=== PATIENT | female | born 1940 | race Caucasian/White ===

== ENCOUNTER 2022-02-17 17:30 | Inpatient (IN) | payer MEDICARE, OTHER, SELFPAY ==
[2022-02-17] VITALS (8 sets, daily range): BP systolic 101–133; BP diastolic 51–90; PULSE 67–77; RESP 18–20; TEMP 36.5–37.1; O2SAT 95–99; BMI 31.5; BMI 29.9
--- NOTE | 2022-02-17 18:08 | PC.NURSE ---
Addendum entered by Hanna Higgins R.N. 02/17/22 18:10: Patient has bedsores to buttocks/coccyx, both heels, and right upper leg area. Dressings which were placed by Home health today were replaced. Most of the pressure sores are black with foul smell. Surrounding tissue does not appear reddened or inflamed. No fever. Patient reports she has been using a wheelchair and a walker to get around for a while now but has declined in the last two weeks with inability to transfer on her own from wheelchair to toilet. She reports difficulty taking care of herself. her has and the only help she has at home is home health visits 2x a week. Son is in town at this time. Sent here by home health today because of pressure sores and decline in ability to care for self. She also reports new swelling in bilateral legs. I spoke with Dr. Raygoza at this time, verbal order given for PRINTED CIRCUIT BOARDS SOLDER LEVELER and PT consults, an EKG, as well as basic bloodwork including cbc, cmp, troponin, and BNP. Original Note: Patient has bedsores to buttocks/coccyx, both heals, and right upper leg area. Dressings which were placed by Home health today were replaced. Most of them are black with foul smell. Surrounding tissure does not appear reddened or inflamed. I spoke with Dr. Raygoza at this time, verbal order given for PRINTED [employer] BOARDS SOLDER LEVELER and PT consults.
--- NOTE | 2022-02-17 18:40 | ED_ITS ---
HPI - Wound/Laceration General Chief Complaint: Wound/Laceration Stated Complaint: Pressure Sore on Buttocks Time Seen by Provider: 02/17/22 18:03 Source: patient, family and EMS Mode of arrival: EMS Limitations: no limitations History of Present Illness HPI narrative: Patient is a 81-year-old female who is brought in by EMS. Her son is at bedside. She is here for evaluation pressure sores on her buttocks and also her right lower extremity and also both of her feet. Patient states that she is had a difficult time ambulating for many years now. She is been using a wheelchair and a walker for many years because of a progressive neurologic issue that is not currently under the care of any neurologist. Does not have a specific diagnosis for this. Approximately 10 days ago she became very weak and was un able to get up out of her chair. She spent at least a day in her chair. She was brought to an outside hospital where she was evaluated and eventually discharged home. During the time she was able to have home health/wound care set up and they have been coming to her house. She is not currently on any antibiotics. Her approximately 7 days ago. She has not been mobile at all in the past 10 days. Has not used her walker. Can not stand on her own. Her son is here locally because of the of the patient's in his father. There was concern by home health of the appearance of the wounds on her buttock and lower extremities. She was sent to the emergency department for evaluation and concern for need for admission/debridement. Related Data Home Medications Medication Instructions Recorded Confirmed aspirin 81 mg chewable tablet 81 mg PO DAILY 02/17/22 02/17/22 levothyroxine 112 mcg tablet 112 mcg PO DAILY 02/17/22 02/17/22 lisinopril 40 mg tablet 40 mg PO DAILY 02/17/22 02/17/22 lovastatin 40 mg tablet 40 mg PO DAILY 02/17/22 02/17/22 metformin 500 mg tablet 500 mg PO DAILY 02/17/22 02/17/22 Allergies Allergy/AdvReac Type Severity Reaction Status Date / Time ibuprofen Allergy Verified 02/17/22 19:03 Review of Systems Review of Systems ROS Unobtainable: All systems reviewed & are unremarkable except as noted in HPI and below Patient History Medical History Diabetes Hypertension Hypothyroid Social History household members: none Smoking Status: Former smoker Smoking Status: Former smoker alcohol intake frequency: 0-2 drinks per day Substance Use Type: does not use Exam Initial Vital Signs Initial Vital Signs: Vital Signs Temperature 97.7 F 02/17/22 17:47 Pulse Rate 77 02/17/22 17:47 Respiratory Rate 18 02/17/22 17:47 Blood Pressure 128/58 L 02/17/22 17:47 Pulse Oximetry 96 02/17/22 17:47 Oxygen Delivery Method 02/17/22 17:47 Const General: No ill appearing HENMT Head: normal to inspection and normocephalic Resp Effort & Inspection: normal respiratory effort Auscultation: clear to auscultation bilaterally Cardio Rate: regular rate Rhythm: regular rhythm GI Inspection: normal to inspection Skin Other: Patient has multiple areas of what appear to be necrotic skin. She is a large area on her upper right buttocks that is black and has decreased sensation to touch. There is an area of ulceration underneath this with drainage of clear fluid. There is no surrounding erythema. She is 2 areas on her lateral right upper thigh and 1 area on her left upper thigh that are also black and necrotic. She has black necrotic areas on both of her heels they extend on the lateral aspect of both of her feet. The right side does have clear drainage fluid. None of these areas are surrounded by erythema. Neuro General: patient alert, patient awake, patient oriented x3 and moves all extremities Extrem General: edema Psych Appearance: grossly normal Course Orders Ordered: ED Orders 02/17/22 18:48 Wound Culture and Gram Stain Stat Wound Culture and Gram Stain Stat 02/17/22 19:32 BNP [NT-proBNP (BNP-Adult 18+)] Stat Complete Blood Count AUTO DIFF Stat Comprehensive Metabolic Panel Stat Troponin & CK Cardiac Panel Stat 02/17/22 21:00 Blood Culture Stat Acetaminophen (Acetaminophen 325 Mg Tablet) 650 mg PO Q6HR PRN PRN Reason: Fever/Mild Pain (1-3) Al Hydrox/Mg Hydrox/Simethicone (Mag Hydrox/Alum/Simeth 30 Ml Udc) 30 ml PO Q6HR PRN PRN Reason: Dyspepsia Atorvastatin Calcium (Atorvastatin 20 Mg Tablet) 10 mg PO DAILY TRUDY Calcium Carbonate (Calcium Carbonate 500 Mg Tab) 1,000 mg PO Q4HR PRN PRN Reason: Dyspepsia Dextrose (Dextrose 50 % In Water 25 Gm/50 Ml Syringe) 25 gm IV PRN PRN; Protocol PRN Reason: Hypoglycemia Docusate Sodium (Docusate 100 Mg Capsule) 100 mg PO BID COUNT INCLUDES THE [facility] Enoxaparin Sodium (Enoxaparin 40 Mg/0.4 Ml Syringe) 40 mg SUBCUT DAILY COUNT INCLUDES THE [facility] Insulin Human Lispro (Insulin Lispro 100 Unit/Ml 3ml Vial) 0 unit SUBCUT ACHS TRUDY; Protocol Levothyroxine Sodium (Levothyroxine 112 Mcg Tablet) 112 mcg PO 0600 COUNT INCLUDES THE [facility] Lisinopril (Lisinopril 20 Mg Tablet) 40 mg PO DAILY COUNT INCLUDES THE [facility] Metformin HCl (Metformin Hcl 500 Mg Tablet) 500 mg PO DAILY COUNT INCLUDES THE [facility] Ondansetron HCl (Ondansetron 4 Mg Odt) 4 mg PO Q8HR PRN PRN Reason: Nausea And Vomiting Pantoprazole Sodium (Pantoprazole Dr 20 Mg Tablet) 20 mg PO 0600 TRUDY Sodium Chloride (Sodium Chloride 0.9% Flush) 10 ml IV PRN PRN PRN Reason: Flush Sodium Chloride (Sodium Chloride 0.9% Flush) 10 ml IV BID COUNT INCLUDES THE [facility] Vital Signs Vital signs: Vital Signs - 8 hr 02/17/22 20:18 02/17/22 20:15 Temperature 98.7 F Pulse Rate 68 76 Respiratory Rate 18 20 Blood Pressure 108/54 L 113/53 L Pulse Oximetry 95 95 Oxygen Delivery Method Room Air Oxygen Flow Rate 0 MDM - Wound/Laceration Lab Data Attestation: I reviewed the patient's lab results. Result diagrams: 02/17/22 19:32 02/17/22 19:32 Labs: Lab Results 02/17/22 02/17/22 02/17/22 Range/Units 19:32 19:32 19:32 WBC 8.8 (4.5-11.0) X10^3/uL RBC 3.10 L (4.0-5.2) X10^6/uL Hgb 9.5 L (12.0-16.0) g/dL Hct 28.6 L (36-46) % MCV 92.1 (80-100) fL MCH 30.7 (26-34) PG MCHC 33.4 (30-36) % RDW 15.6 H (11.6-14.8) % Plt Count 369 (150-400) X10^3/uL Neut % (Auto) 62.6 (50-75) % Lymph % (Auto) 20.4 L (25-40) % [place] % (Auto) 9.1 (3-14) % Eos % (Auto) 7.1 H (2-4) % Baso % (Auto) 0.8 (0-2) % Neut # (Auto) 5500 (5889-7347) /uL Lymph # (Auto) 1800 (8933-0076) /uL [place] # (Auto) 800 (0-900) /uL Eos # (Auto) 600 H (0-450) /uL Baso # (Auto) 100 (0-100) /uL Sodium 137 (137-145) mmol/L Potassium 4.2 (3.4-5.1) mmol/L Chloride 104 (98-107) mmol/L Carbon Dioxide 26 (22-32) mmol/L BUN 31 H (7-17) mg/dL Creatinine 0.83 (0.52-1.04) mg/dL Estimated GFR > 60 (>60) mL/min BUN/Creatinine Ratio 37.3 H (6-22) Glucose 110 (80-110) mg/dL Calcium 8.7 (8.4-10.2) mg/dL Total Bilirubin 0.2 (0.2-1.3) mg/dL AST 22 (14-36) IU/L ALT 15 (<35) IU/L Alkaline Phosphatase 73 (38-126) U/L Total Creatine Kinase 46 (30-135) U/L CK-MB (CK-2) TNP CK-MB (CK-2) Rel Index TNP Troponin I < 0.012 (0.01-0.034) ng/mL NT-Pro-B Natriuret Pep 227 (<450) pg/mL Total Protein 6.7 (6.3-8.2) g/dL Albumin 3.3 L (3.5-5.0) g/dL Globulin 3.4 (1.7-4.1) g/dL Albumin/Globulin Ratio 1.0 (1.0-2.8) ECG Data Attestation: I personally reviewed and interpreted this ECG as follows: Interpretation: Sinus rhythm Ventricular rate is 70 Normal axis Normal QRS Normal QTC No ST T wave changes MDM Narrative Medical decision making narrative: The areas necrosis on her buttocks and lower extremities do not appear to have a superinfection. Her right foot in her buttocks area was cultured because these are the only areas that had clear drainage. We will hold on any antibiotics for now. Patient absolutely needs admitted to the hospital for surgical consultation and most likely debridement of these areas. I did discuss the case with Dr. Flores with general surgery who will see the patient after admission. Discussed the case with Dr. Bernal with Internal Medicine who will admit for further evaluation treatment. Did discuss the need for admission with the patient and her family. They expressed understanding as well. Discharge Plan Departure Patient Disposition: Admitted As Inpatient Clinical Impression: Pressure ulcer Admit Date/Time: 02/17/22 20:27 Admit Provider: Candace Bernal
[2022-02-17 19:51] LABS: Add Manual Diff / Slide Review NO; Basophils Absolute Auto 100 /uL (0-100); Basophils Percent Auto 0.8 % (0-2); Eosinophils Absolute Auto 600 /uL (0-450); Eosinophils Percent Auto 7.1 % (2-4); Hematocrit 28.6 % (36-46); Hemoglobin 9.5 g/dL (12.0-16.0); Lymphocytes Absolute Auto 1800 /uL (1100-4500); Lymphocytes Percent Auto 20.4 % (25-40); Mean Corpuscular HGB Conc 33.4 % (30-36); Mean Corpuscular Hemoglobin 30.7 PG (26-34); Mean Corpuscular Volume 92.1 fL (80-100); Monocytes Absolute Auto 800 /uL (0-900); Monocytes Percent Auto 9.1 % (3-14); Neutrophils Absolute Auto 5500 /uL (1500-7000); Neutrophils Percent Auto 62.6 % (50-75); Platelet Count 369 X10^3/uL (150-400); Red Cell Distribution Width 15.6 % (11.6-14.8); White Blood Cell Count 8.8 X10^3/uL (4.5-11.0)
[2022-02-17 19:53] LABS: Alanine Aminotransferase 15 IU/L (<35); Albumin 3.3 g/dL (3.5-5.0); Alkaline Phosphatase 73 U/L (38-126); Aspartate Aminotransferase 22 IU/L (14-36); BUN Creatinine Ratio 37.3 (6-22); Bilirubin Total 0.2 mg/dL (0.2-1.3); Blood Urea Nitrogen 31 mg/dL (7-17); Calcium 8.7 mg/dL (8.4-10.2); Carbon Dioxide 26 mmol/L (22-32); Chloride 104 mmol/L (98-107); Creatine Kinase 46 U/L (30-135); Estimated Glomerular Filt Rate > 60 mL/min (>60); Globulin 3.4 g/dL (1.7-4.1); Glucose 110 mg/dL (80-110); HEMOLYSIS < 15 (0-50); Potassium 4.2 mmol/L (3.4-5.1); Sodium 137 mmol/L (137-145); Total Protein 6.7 g/dL (6.3-8.2)
[2022-02-17 20:02] LABS: NT-proBNP (BNP-Adult 18+) 227 pg/mL (<450)
[2022-02-17 20:04] LABS: Troponin I < 0.012 ng/mL (0.01-0.034)
--- NOTE | 2022-02-17 20:14 | CM.SWNOTE ---
Initial DCP Assessment Patient is 81 y/o female who presents to ED via EMS per recommendation from elementary instructional coach from [facility] . It is reported that patient has pressure ulcers on her bottom. Patient presented to [facility] on 01/25/22 with similar concerns and was d/c'd to home with [facility] referral. Patient has hx of Hypertension, Type 2 diabetes and Hypothyroidism. Patient's PCP is Corine Mckay PA-C with [facility] in [place], [place]. Patient has Medicare and [facility] insurance. EXTENSION WORK DIRECTOR enters room. Present is room is patient's two sons Zhang and Darion who are visiting from [place]. Patient presents as A/Ox3. It is reported that patient's recently and patient resides at home alone in [place]. Patient endorses she uses a wheelchair, FWW and jovon lift at home. Patient endorses she was using FWW until a few weeks ago and has been in her wheelchair and transferring from wheelchair to bed. Patient's son reports that patient's [facility] referral is for PT, OT, RN, HH aide and EXTENSION WORK DIRECTOR. It is was reported that there was a concern for HH team's ability to manage patient's level of care. Patient endorses concern for her numb right leg. Patient has been needing assistance with ADLs. Patient endorses preference for SNF rehab. Per ED provider Dr. Jung, there is concern that patient will need Incision and Drainage for patients wounds throughout her bottom and legs. ED provider to continue to evaluate patient as patient's labs and blood cultures are still pending. There is an order for PT. Plan: ED provider to further medically assess patient, EXTENSION WORK DIRECTOR to f/u with POC tomorrow, pending PT evaluation. OZZIE Lai Discharge Planning/Care Management CM Discharge Assessment Start: 02/17/22 20:09 Freq: Status: Active Protocol: Document 02/17/22 20:10 LN (Rec: 02/17/22 20:14 LN [id number]) Discharge Planning Assessment Assigned Group Controller OZZIE Moses Advance Directives? No History Provided By Patient,Family Member Has Patient been admitted in last 30 No days? Prior Living Arrangements House Household Members none Comment Patient's recently on hospice Type of transporation used prior to Relies on Others admit Independent with ADL's No Is patient alert and oriented? Yes Needs Assistance With Bathing,Grooming,Meal Prep, Toileting,Home Chores / Shopping Caregiver for Another No Community Services used prior to Physical Therapy,Occupational admission: Therapy,Home Health Aid,Home Health Nurse,Social Work Comment Patient has current referral for [facility], per family it is for: EXTENSION WORK DIRECTOR, RN, OT, PT and EXTENSION WORK DIRECTOR. It is also reported that [facility] is not able to manage patient's level of care DME Already Rented / Owned Wheelchair,FWW / Walker Comment Patient also has jovon lift at home and her jovon transfer sheet is present with her today. Patient/Family Preference Group Home Facility SNF/HH Preference EXTENSION WORK DIRECTOR asks about preference and she and family prefer SNF rehab near by. Has Agency SNF been contacted No
[2022-02-17 21:37] LABS: COVID19 -Nasal RAPID Negative (Negative)
--- NOTE | 2022-02-17 21:41 | PC.NURSE ---
Mepilex dressing applied to all wounds.
--- NOTE | 2022-02-17 23:26 | PM.HP.1 ---
History of Present Illness History of Present Illness Date Patient Seen: 02/17/22 Time Patient Seen: 23:27 Date of Onset of Symptoms: 01/25/22 Chief complaint: Pressure Sore on Buttocks Narrative: This is a 81-year-old female with a history of primary lateral sclerosis who presents to the emergency department for evaluation of wounds and progressive decline in mobility who was discovered to have necrotic ulcers on her bilateral buttocks legs and heels. Due to the extent and significance of the wounds it was felt she needed hospitalization with expected probable surgical debridement and aggressive treatment of these wounds. Wound cultures and blood cultures were done in the emergency room. The case was discussed with General surgery. The patient is followed by Dr. Corine Raygoza at [facility] and [facility]. The patient lives on [address]. She is excellent historian and her son Zhang is here visiting from [place]. She has had a progressive decline over the last several months but for 6 weeks she is essentially been immobile and no longer able to walk with her walker. She is had severe pain over the last 2 weeks because of the wounds and has been continually on them. Apparently she sought care at [facility] Emergency room and for some reason they did not admit her to the hospital but discharge her to home with home health. Home health has been coming into the house twice weekly. Patient was seen at [facility] on January 25. Past medical history: 1. Type 2 diabetes, non insulin-dependent 2. Hyperlipidemia 3. Hypertension 4. Hypothyroidism 5. Former smoker Medications include metformin 500 mg twice daily, lovastatin, levothyroxine, lisinopril Past surgical history unremarkable. Patient has had no surgeries other than surgical repair of leg fractures Family history her mom had diabetes as did her maternal grandmother No other medical problems run in the family. Health related behavior she no longer smokes does not use alcohol Social history she is a . Unfortunately her a week ago. He had dementia and was on hospice. Her only son lives in [place] and is here visiting was here helping care for his father. Patient was in a home by herself on [address]. She is supported nar but no family nearby Review of systems is negative for fever, chills, cough, shortness of breath, chest pain, palpitations Patient has had a catheter since she was in the ER at [facility]. They did have an episode where it was pulled out and she had some bleeding. They were planning to put a bigger bulb been. Patient History Family & Social History Social History: household members none Prior Living Arrangements House Safety & Behavioral: Feels Safe in Current Yes Environment Been Physically Hurt or No Threatened By a Person Tobacco & Substance use: Tobacco type cigarettes Smoking Status Former smoker alcohol intake frequency 0-2 drinks per day Substance Use Type does not use Meds Home Medications and Allergies Home Medications Medication Instructions Recorded Confirmed Type aspirin 81 mg chewable tablet 81 mg PO DAILY 02/17/22 02/17/22 History levothyroxine 112 mcg tablet 112 mcg PO DAILY 02/17/22 02/17/22 History lisinopril 40 mg tablet 40 mg PO DAILY 02/17/22 02/17/22 History lovastatin 40 mg tablet 40 mg PO DAILY 02/17/22 02/17/22 History metformin 500 mg tablet 500 mg PO DAILY 02/17/22 02/17/22 History Allergies Allergy/AdvReac Type Severity Reaction Status Date / Time ibuprofen Allergy Verified 02/17/22 19:03 Exam Vital Signs (past 8 hours): - 02/17/22 17:47 02/17/22 20:18 02/17/22 19:00 Temperature 97.7 F Pulse Rate 77 68 67 Respiratory Rate 18 18 18 Blood Pressure 128/58 L 108/54 L 123/57 L Pulse Oximetry 96 95 99 Oxygen Delivery Method Room Air Room Air Room Air 02/17/22 18:30 02/17/22 18:00 02/17/22 21:00 Temperature Pulse Rate 73 72 68 Respiratory Rate 18 Blood Pressure 121/90 133/63 102/51 L Pulse Oximetry 97 96 95 Oxygen Delivery Method Room Air Room Air 02/17/22 21:30 Temperature Pulse Rate 68 Respiratory Rate 18 Blood Pressure 101/57 L Pulse Oximetry 97 Oxygen Delivery Method Room Air Oxygen Delivery Method Room Air Narrative Exam Narrative: Afebrile vital signs are stable HEENT: Mucous membranes are moist and pink without mucosal lesions. Neck: Supple without adenopathy thyromegaly or bruits. No obvious masses. Chest: Shows clear to auscultation without wheezes rhonchi or crackles. Cor: Regular rate and rhythm with distant S1-S2 Abdomen: Protuberant positive bowel sounds, soft, nontender, nondistended, hepatosplenomegaly Extremities: Trace edema. Pulses intact. Skin: Patient with necrotic decubitus ulcers on the buttocks. Foul-smelling. Pressure wounds on the heels bilaterally as well as the medial thigh. Neurologic exam is remarkable for movement of her left lower leg flexion minimally. She is full movement of her upper extremities. Cranial nerves 2-12 are grossly intact. Patient does have spasticity lower extremities. Objective Labs Result Diagrams: 02/17/22 19:32 02/17/22 19:32 Labs: Laboratory Results - last 24 hr 02/17/22 02/17/22 02/17/22 19:32 19:32 19:32 WBC 8.8 RBC 3.10 L Hgb 9.5 L Hct 28.6 L MCV 92.1 MCH 30.7 MCHC 33.4 RDW 15.6 H Plt Count 369 Neut % (Auto) 62.6 Lymph % (Auto) 20.4 L [place] % (Auto) 9.1 Eos % (Auto) 7.1 H Baso % (Auto) 0.8 Neut # (Auto) 5500 Lymph # (Auto) 1800 [place] # (Auto) 800 Eos # (Auto) 600 H Baso # (Auto) 100 Sodium 137 Potassium 4.2 Chloride 104 Carbon Dioxide 26 BUN 31 H Creatinine 0.83 Estimated GFR > 60 BUN/Creatinine Ratio 37.3 H Glucose 110 Calcium 8.7 Total Bilirubin 0.2 AST 22 ALT 15 Alkaline Phosphatase 73 Total Creatine Kinase 46 CK-MB (CK-2) TNP CK-MB (CK-2) Rel Index TNP Troponin I < 0.012 NT-Pro-B Natriuret Pep 227 Total Protein 6.7 Albumin 3.3 L Globulin 3.4 Albumin/Globulin Ratio 1.0 SARS-CoV-2 (PCR) 02/17/22 21:00 WBC RBC Hgb Hct MCV MCH MCHC RDW Plt Count Neut % (Auto) Lymph % (Auto) [place] % (Auto) Eos % (Auto) Baso % (Auto) Neut # (Auto) Lymph # (Auto) [place] # (Auto) Eos # (Auto) Baso # (Auto) Sodium Potassium Chloride Carbon Dioxide BUN Creatinine Estimated GFR BUN/Creatinine Ratio Glucose Calcium Total Bilirubin AST ALT Alkaline Phosphatase Total Creatine Kinase CK-MB (CK-2) CK-MB (CK-2) Rel Index Troponin I NT-Pro-B Natriuret Pep Total Protein Albumin Globulin Albumin/Globulin Ratio SARS-CoV-2 (PCR) Negative Assessment & Plan Assessment & Plan narrative: 81-year-old female with primary lateral sclerosis with progressive worsening mobility issues and now with necrotic pressure wounds that will likely need debridement Assessment 1. Primary lateral sclerosis Plan: I think that this is progression of the disease which is affecting her immobility. There is no evidence of recent stroke or other neurologic etiology. Plan: We will get her records. We will consult physical therapy. Occupational therapy Assessment 2. Necrotic decubitus ulcers with complicating factor of progressive neurologic disorder that affects immobility. Plan: Patient meets criteria for inpatient admission due to the severity of the decubitus ulcers and the likelihood of needing surgical debridement and aggressive wound care as well as assistance with mobility. We will consult physical therapy, occupational therapy, discharge planning. Patient will likely need skilled care facility. Dr. Flores is consulted regarding the ulcers. Wound cultures are pending as are blood cultures. Will reassess labs in a.m.. Assessment 3. Type 2 diabetes Plan: Will check sugars and continue outpatient metformin Assessment 4. Hypertension Plan: Will continue outpatient antihypertensive Assessment 5. Hyperlipidemia Plan: Will continue outpatient lovastatin Assessment 6. DVT prophylaxis Plan Lovenox Assessment 7. GI prophylaxis Plan omeprazole Code status is DNR 65 minutes spent with patient, discussing with ER physician, nursing, patient and her son and meeting with patient reviewing the chart formulating a plan and documentation. Time Spent With Patient Critical Care time: I spent a total of [] minutes of critical care time on this patient's care today; this time is exclusive of procedural time. Quality VTE Deep Vein Thrombosis/Pulmonary Embolism Present on Admission: No
[2022-02-18] VITALS (20 sets, daily range): BP systolic 72–135; BP diastolic 40–84; PULSE 66–107; RESP 11–22; TEMP 35.6–36.7; O2SAT 94–99; BMI 29.9
[2022-02-18] MEDS: PANTOPRAZOLE DR 20 MG TABLET PO (05:56)
[2022-02-18] MEDS: LEVOTHYROXINE 112 MCG TABLET PO (05:56)
[2022-02-18 06:24] LABS: Add Manual Diff / Slide Review NO; Basophils Absolute Auto 100 /uL (0-100); Basophils Percent Auto 1.1 % (0-2); Eosinophils Absolute Auto 600 /uL (0-450); Eosinophils Percent Auto 9.3 % (2-4); Hematocrit 28.3 % (36-46); Hemoglobin 9.3 g/dL (12.0-16.0); Lymphocytes Absolute Auto 1600 /uL (1100-4500); Lymphocytes Percent Auto 22.9 % (25-40); Mean Corpuscular HGB Conc 32.7 % (30-36); Mean Corpuscular Hemoglobin 30.1 PG (26-34); Monocytes Absolute Auto 900 /uL (0-900); Monocytes Percent Auto 12.3 % (3-14); Neutrophils Absolute Auto 3800 /uL (1500-7000); Neutrophils Percent Auto 54.4 % (50-75); Platelet Count 339 X10^3/uL (150-400); Red Blood Cell Count 3.08 X10^6/uL (4.0-5.2); Red Cell Distribution Width 15.7 % (11.6-14.8)
[2022-02-18 06:38] LABS: Alanine Aminotransferase 13 IU/L (<35); Alkaline Phosphatase 66 U/L (38-126); Aspartate Aminotransferase 19 IU/L (14-36); BUN Creatinine Ratio 31.9 (6-22); Bilirubin Total 0.2 mg/dL (0.2-1.3); Blood Urea Nitrogen 23 mg/dL (7-17); Calcium 8.4 mg/dL (8.4-10.2); Carbon Dioxide 26 mmol/L (22-32); Chloride 104 mmol/L (98-107); Estimated Glomerular Filt Rate > 60 mL/min (>60); Globulin 3.1 g/dL (1.7-4.1); Glucose 97 mg/dL (80-110); HEMOLYSIS < 15 (0-50); Potassium 4.2 mmol/L (3.4-5.1); Sodium 137 mmol/L (137-145); Total Protein 6.1 g/dL (6.3-8.2)
[2022-02-18 06:47] LABS: HEMOLYSIS < 15 (0-50); Iron 49 ug/dL (37-170)
[2022-02-18 06:55] LABS: Transferrin 139 mg/dL (206-381)
[2022-02-18 07:00] LABS: Percent Iron Saturation 24 % (15-50); Total Iron Binding Capacity 201 ug/dL (265-497)
--- NOTE | 2022-02-18 07:05 | PC.ADMIT ---
2383 [facility] Admission Note: The patient,Andra Becker,81 y/o, was given written information regarding hospital policies, unit procedures and contact persons. Patient's smoking status: Former smoker. Vital Signs - 8 hr 02/18/22 00:30 Oxygen Delivery Method Room Air
--- NOTE | 2022-02-18 07:17 | P.PN_ITS ---
Subjective Subjective Date Patient Seen: 02/18/22 Interval history: 81-year-old Female with primary lateral sclerosis, type 2 diabetes, hyperlipidemia hypertension, and hypothyroidism who admitted loss night with progressive necrotic decubitus wounds and worsening mobility issues. Patient reports she had an okay night overall. She got good rest. No nausea/vomiting/abdominal pain/chest pain/shortness of breath. She does report she has been eating less recently. Her son has been preparing foods that she does not care for. She reports her entire intake yesterday consisted of peanut butter toast and a protein shake. She does feel she has lost weight as she has noticed more wrinkles in her arms. Exam Vital Signs (past 8 hours): - 02/18/22 00:30 Oxygen Delivery Method Room Air Oxygen Delivery Method Room Air Oxygen Flow Rate 0 Narrative Exam Narrative: GEN: Alert and oriented x 3, NAD HEENT:NC, Face symmetric CHEST: Respiratory excursions symmetric, CTAB CV: RRR, no M/R/G ABD: Soft, NT/ND, BT present in all 4 quadrants, no organomegaly or masses EXTR: warm, well perfused, no C/C/E SKIN: warm and dry, no rash; large approximately 5 cm malodorous necrotic decubitus ulcer noted on the right buttock with mild surrounding erythema NEURO: Alert and oriented x 3, nonfocal Objective Labs Result Diagrams: 02/18/22 06:10 02/18/22 06:10 Labs: Laboratory Results - last 24 hr 02/17/22 02/17/22 02/17/22 19:32 19:32 19:32 WBC 8.8 RBC 3.10 L Hgb 9.5 L Hct 28.6 L MCV 92.1 MCH 30.7 MCHC 33.4 RDW 15.6 H Plt Count 369 Neut % (Auto) 62.6 Lymph % (Auto) 20.4 L [place] % (Auto) 9.1 Eos % (Auto) 7.1 H Baso % (Auto) 0.8 Neut # (Auto) 5500 Lymph # (Auto) 1800 [place] # (Auto) 800 Eos # (Auto) 600 H Baso # (Auto) 100 Sodium 137 Potassium 4.2 Chloride 104 Carbon Dioxide 26 BUN 31 H Creatinine 0.83 Estimated GFR > 60 BUN/Creatinine Ratio 37.3 H Glucose 110 Calcium 8.7 Iron TIBC % Saturation Transferrin Total Bilirubin 0.2 AST 22 ALT 15 Alkaline Phosphatase 73 Total Creatine Kinase 46 CK-MB (CK-2) TNP CK-MB (CK-2) Rel Index TNP Troponin I < 0.012 NT-Pro-B Natriuret Pep 227 Total Protein 6.7 Albumin 3.3 L Globulin 3.4 Albumin/Globulin Ratio 1.0 SARS-CoV-2 (PCR) 02/17/22 02/18/22 02/18/22 21:00 06:10 06:10 WBC 7.0 RBC 3.08 L Hgb 9.3 L Hct 28.3 L MCV 92.0 MCH 30.1 MCHC 32.7 RDW 15.7 H Plt Count 339 Neut % (Auto) 54.4 Lymph % (Auto) 22.9 L [place] % (Auto) 12.3 Eos % (Auto) 9.3 H Baso % (Auto) 1.1 Neut # (Auto) 3800 Lymph # (Auto) 1600 [place] # (Auto) 900 Eos # (Auto) 600 H Baso # (Auto) 100 Sodium 137 Potassium 4.2 Chloride 104 Carbon Dioxide 26 BUN 23 H Creatinine 0.72 Estimated GFR > 60 BUN/Creatinine Ratio 31.9 H Glucose 97 Calcium 8.4 Iron TIBC % Saturation Transferrin Total Bilirubin 0.2 AST 19 ALT 13 Alkaline Phosphatase 66 Total Creatine Kinase CK-MB (CK-2) CK-MB (CK-2) Rel Index Troponin I NT-Pro-B Natriuret Pep Total Protein 6.1 L Albumin 3.0 L Globulin 3.1 Albumin/Globulin Ratio 1.0 SARS-CoV-2 (PCR) Negative 02/18/22 06:10 WBC RBC Hgb Hct MCV MCH MCHC RDW Plt Count Neut % (Auto) Lymph % (Auto) [place] % (Auto) Eos % (Auto) Baso % (Auto) Neut # (Auto) Lymph # (Auto) [place] # (Auto) Eos # (Auto) Baso # (Auto) Sodium Potassium Chloride Carbon Dioxide BUN Creatinine Estimated GFR BUN/Creatinine Ratio Glucose Calcium Iron 49 TIBC 201 L % Saturation 24 Transferrin 139 L Total Bilirubin AST ALT Alkaline Phosphatase Total Creatine Kinase CK-MB (CK-2) CK-MB (CK-2) Rel Index Troponin I NT-Pro-B Natriuret Pep Total Protein Albumin Globulin Albumin/Globulin Ratio SARS-CoV-2 (PCR) [facility] Medical History Diabetes Hypertension Hypothyroid Social History household members: none Smoking Status: Former smoker Assessment & Plan Assessment & Plan narrative: 1. Primary lateral sclerosis Patient has had progressive difficulties with mobility. She has been wheelchair bound. Recently, her on hospice. Son lives in [place]. She will likely require placement at discharge. Await PT/OT evaluations. 2. Necrotic decubitus ulcers Await surgical consultation for further recommendations and evaluation for possible debridement. I have encouraged her to lay on her side primarily to avoid ongoing pressure injury on the decubitus ulcer. Giving significant malodor to her wound, I suspect she has an anaerobic infection. Will initiate treatment with IV Zosyn. 3. Diabetes mellitus type 2 Remains on metformin. Continue controlled carb diet. 4. Hypertension Continue lisinopril. Blood pressure is normotensive this morning. 5. Hyperlipidemia Continue statin therapy. 6. Normocytic anemia Iron studies were performed and consistent with anemia of chronic inflammatory disease. 7. Azotemia BUN was 31 on admission, it is improved today down to 23. Will continue to monitor. Code status DNR Prophylaxis Chemical prophylaxis deferred pending evaluation for general surgery Disposition Very likely will require placement at discharge as she is unable to care for herself and her next of kin lives out of state Time Spent With Patient Critical Care time: I spent a total of [] minutes of critical care time on this patient's care today; this time is exclusive of procedural time. Quality VTE Deep Vein Thrombosis/Pulmonary Embolism Present on Admission: No
[2022-02-18 07:27] LABS: Vitamin B12 659 pg/mL (239-931)
--- NOTE | 2022-02-18 07:52 | PM.CALLCOV.1 ---
Call Coverage Note Note Date of Patient Contact: 02/18/22 Time of Patient Contact: 07:52 Narrative of Care Provided: Full consult note to follow 81F decubitus ulcers to OR today for debridment and likely wound vac placement.
[2022-02-18 08:31] LABS: Free T4, Direct Thyroxine 1.51 ng/dL (0.78-2.19)
[2022-02-18] MEDS: SODIUM CHLORIDE 0.9% 250 ML 21 ML IV (08:39)
[2022-02-18] MEDS: PIPERACILLIN/TAZO 3.375 GM in SODIUM CHLORIDE 0.9% 100 ML IV ×2 (08:39→15:39)
[2022-02-18] MEDS: SODIUM CHLORIDE 0.9% FLUSH 10 ML IV ×2 (08:40→20:34)
--- NOTE | 2022-02-18 09:31 | PT-IP ANOTE ---
PT lory received. EMR reviewed. Per doctor's note: plan is for I&D and possible wound vac placement on decubitus ulcer. Will f/u after surgery. informed nurse and agreed.
--- NOTE | 2022-02-18 09:38 | OT.IPNOTE ---
HOLD OT lory as pt to have I and D.
--- NOTE | 2022-02-18 11:12 | P.CONS_ITS ---
History of Present Illness Consult details Date Patient Seen: 02/18/22 Chief complaint: Pressure Sore on Buttocks Narrative: 81-year-old woman with primary lateral sclerosis and associated deep pressure ulcers of her back and bilateral feet. 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 Past medical history significant for diabetes and hypothyroidism Meds Home Medications and Allergies Home Medications Medication Instructions Recorded Confirmed Type aspirin 81 mg chewable tablet 81 mg PO DAILY 02/17/22 02/17/22 History levothyroxine 112 mcg tablet 112 mcg PO DAILY 02/17/22 02/17/22 History lisinopril 40 mg tablet 40 mg PO DAILY 02/17/22 02/17/22 History lovastatin 40 mg tablet 40 mg PO DAILY 02/17/22 02/17/22 History metformin 500 mg tablet 500 mg PO DAILY 02/17/22 02/17/22 History Allergies Allergy/AdvReac Type Severity Reaction Status Date / Time ibuprofen Allergy Verified 02/17/22 19:03 Exam Vital Signs (past 8 hours): - 02/18/22 07:00 Temperature 97.1 F L Pulse Rate 76 Respiratory Rate 14 Blood Pressure 105/55 L Pulse Oximetry 94 Oxygen Flow Rate 0 Oxygen Delivery Method Room Air Oxygen Flow Rate 0 Narrative Exam Narrative: General elderly woman alert oriented no distress Back unstageable decubitus ulcer of the right lower back. Extremities pitting edema unstageable pressure ulcers to the heels and lateral aspects of both feet. Objective Labs Result Diagrams: 02/18/22 06:10 02/18/22 06:10 Labs: Laboratory Results - last 24 hr 02/17/22 02/17/22 02/17/22 19:32 19:32 19:32 WBC 8.8 RBC 3.10 L Hgb 9.5 L Hct 28.6 L MCV 92.1 MCH 30.7 MCHC 33.4 RDW 15.6 H Plt Count 369 Neut % (Auto) 62.6 Lymph % (Auto) 20.4 L [place] % (Auto) 9.1 Eos % (Auto) 7.1 H Baso % (Auto) 0.8 Neut # (Auto) 5500 Lymph # (Auto) 1800 [place] # (Auto) 800 Eos # (Auto) 600 H Baso # (Auto) 100 Sodium 137 Potassium 4.2 Chloride 104 Carbon Dioxide 26 BUN 31 H Creatinine 0.83 Estimated GFR > 60 BUN/Creatinine Ratio 37.3 H Glucose 110 Calcium 8.7 Iron TIBC % Saturation Transferrin Total Bilirubin 0.2 AST 22 ALT 15 Alkaline Phosphatase 73 Total Creatine Kinase 46 CK-MB (CK-2) TNP CK-MB (CK-2) Rel Index TNP Troponin I < 0.012 NT-Pro-B Natriuret Pep 227 Total Protein 6.7 Albumin 3.3 L Globulin 3.4 Albumin/Globulin Ratio 1.0 Vitamin B12 TSH Free T4 SARS-CoV-2 (PCR) 02/17/22 02/18/22 02/18/22 21:00 06:10 06:10 WBC 7.0 RBC 3.08 L Hgb 9.3 L Hct 28.3 L MCV 92.0 MCH 30.1 MCHC 32.7 RDW 15.7 H Plt Count 339 Neut % (Auto) 54.4 Lymph % (Auto) 22.9 L [place] % (Auto) 12.3 Eos % (Auto) 9.3 H Baso % (Auto) 1.1 Neut # (Auto) 3800 Lymph # (Auto) 1600 [place] # (Auto) 900 Eos # (Auto) 600 H Baso # (Auto) 100 Sodium 137 Potassium 4.2 Chloride 104 Carbon Dioxide 26 BUN 23 H Creatinine 0.72 Estimated GFR > 60 BUN/Creatinine Ratio 31.9 H Glucose 97 Calcium 8.4 Iron TIBC % Saturation Transferrin Total Bilirubin 0.2 AST 19 ALT 13 Alkaline Phosphatase 66 Total Creatine Kinase CK-MB (CK-2) CK-MB (CK-2) Rel Index Troponin I NT-Pro-B Natriuret Pep Total Protein 6.1 L Albumin 3.0 L Globulin 3.1 Albumin/Globulin Ratio 1.0 Vitamin B12 TSH Free T4 SARS-CoV-2 (PCR) Negative 02/18/22 02/18/22 06:10 06:10 WBC RBC Hgb Hct MCV MCH MCHC RDW Plt Count Neut % (Auto) Lymph % (Auto) [place] % (Auto) Eos % (Auto) Baso % (Auto) Neut # (Auto) Lymph # (Auto) [place] # (Auto) Eos # (Auto) Baso # (Auto) Sodium Potassium Chloride Carbon Dioxide BUN Creatinine Estimated GFR BUN/Creatinine Ratio Glucose Calcium Iron 49 TIBC 201 L % Saturation 24 Transferrin 139 L Total Bilirubin AST ALT Alkaline Phosphatase Total Creatine Kinase CK-MB (CK-2) CK-MB (CK-2) Rel Index Troponin I NT-Pro-B Natriuret Pep Total Protein Albumin Globulin Albumin/Globulin Ratio Vitamin B12 659 TSH 14.00 H Free T4 1.51 SARS-CoV-2 (PCR) [facility] Medical History Diabetes Hypertension Hypothyroid Social History household members: none Tobacco & Substance Use Smoking Status: Former smoker Assessment & Plan Assessment and plan (1) Pressure ulcer: Status: Acute Assessment & Plan narrative: 81-year-old woman wheelchair-bound secondary to primary lateral sclerosis who has developed severe pressure ulcers of the sacrum and bilateral feet. She requires operative debridement of the decubitus ulcers. Intent to place wound VAC to the sacral ulcer he and wet to dry dressings to the feet. Overview of the operation was discussed with the patient. Operative risks including bleeding, infection, failure to heal, anesthetic complication and were discussed. Her questions have been answered and she is in agreement with this plan. Time Spent With Patient Critical Care time: I spent a total of [] minutes of critical care time on this patient's care today; this time is exclusive of procedural time.
--- NOTE | 2022-02-18 12:03 | PC.NURSE ---
Day Shift Pt left floor via bed to OR for I&D procedure at 1205. Pt denied any pain.
[2022-02-18] MEDS: LACTATED RINGERS 1,000 ML 42 ML IV ×3 (12:30→14:53)
--- NOTE | 2022-02-18 13:19 | SUR.OPER ---
Prone on padded OR bed, head in foam head support, gel chest rolls, gel pad under knees, pillow under lower legs, toes free of pressure, arms secured on padded arm boards at <90 degrees abduction. Safety belt at thigh.
--- NOTE | 2022-02-18 13:19 | SUR.OPER ---
Addendum entered by Shai Van R.N. 02/18/22 13:53: ulcer right lateral knee Original Note: necrotic decubitus ulcers on posterior right gluteusregion, right mid thigh, bilateral bottom of heels/feet, and skin abrasion posterior left mid thigh
[2022-02-18] MEDS: BUPIVACAINE 0.25% (PF) VIAL 30 ML INJ (13:33)
--- NOTE | 2022-02-18 13:56 | PC.NURSE ---
Day shift: Pt remains off of AC unit at this time (1400). Family members in Pt's room at this time also.
--- NOTE | 2022-02-18 14:27 | PM.OP.1 ---
Operative Date/Time/Diagnoses Date of procedure: 02/18/22 Time of procedure: 14:27 Pre-op diagnosis: Decubitus ulcer Post-op diagnosis: same Procedure & Clinicians Procedure: Excisional debridement of decubitus ulcers Same procedure as scheduled: Yes Indications: 81-year-old woman wheelchair-bound with multiple decubitus ulcers in involving her buttock bilateral feet and right lower extremity Surgeon: Jorge Luis Asher Yes if Unassisted: Yes Anesthesia Type: General Operative Notes Specimen(s): other (Decubitus ulcer sent for culture ) Estimated Blood Loss (mL): 50 Procedure in detail: Patient was brought to the operating room placed supine on the table. She received Zosyn prior to skin incision. She was intubated with an endotracheal tube. She was then placed into the prone position for the padded. She was prepped and draped in sterile fashion. Time-out was performed. An elliptical incision around the decubitus ulcer on the right buttock was made. The incision was extended to the depth of the muscle before viable tissue was reached. The size of this wound measured approximately 20 x 15 cm and 1 cm in depth the level was to the muscle. There were 2 wounds on the right lower extremity on the lateral surface superior to the knee. The dimensions of these wounds measured 8 x 4 cm by 1/2 cm in depth to the subcutaneous tissue the 2nd measured 9 x 5 cm 1 cm in depth to the level of the subcutaneous tissue. There were decubitus ulcers that were debrided on the bottom of both feet. This involved the heel of the left foot which was excised the wound measured 6 x 6 cm x 1 cm in depth. The right foot had a elongated portion of necrotic tissue extending along the lateral aspect of the foot which measured 20 cm x 4 cm x 1 cm depth Hemostasis was achieved. Wet-to-dry dressings with 4x4s Kerlix applied to the wounds. Complications: none Post-operative Condition: stable Disposition: Acute Care
--- NOTE | 2022-02-18 14:36 | SUR.PHASEI ---
BP range from 72/40 with MAP of 50 to 76/43 with MAP of 51; GCS 15; NSR; 500 ml LR bolus given.
--- NOTE | 2022-02-18 14:40 | SUR.PHASEI ---
BP 83/48, MAP 58 after 500 ml LR bolus; tolerating well; lungs remain clear on auscultation; placed pillows under each lower extremity for comfort and to prevent further skin breakdown to bilateral heels/soles of feet.
--- NOTE | 2022-02-18 14:57 | CM.DPC ---
Addendum entered by Aurelia Byrne 02/18/22 15:12: DCP Note continued ELEVATING GRADER OPERATOR is informed that patient is inpatient status as of 02/17/22. SNF rehab search: ELEVATING GRADER OPERATOR calls Blanca at [facility], it is reported that she can review patient but will probably not have bed openings until Wednesday 02/21 or Thursday 02/22. Blanca endorses she will review patient's EMR and return call. ELEVATING GRADER OPERATOR calls [facility] and leaves VM requesting return call. ELEVATING GRADER OPERATOR faxes clinicals for review. ELEVATING GRADER OPERATOR calls [facility], ELEVATING GRADER OPERATOR is unable to leave VM due to full mailbox. ELEVATING GRADER OPERATOR faxes clinicals for review. ELEVATING GRADER OPERATOR calls [facility] and leaves VM requesting return call. ELEVATING GRADER OPERATOR faxes clinicals for review. Plan: Continue SNF rehab search, pending PT eval. OZZIE Lai Original Note: DCP Note Continued DCP ELEVATING GRADER OPERATOR Damaris asks ELEVATING GRADER OPERATOR to f/u with family regarding POC and private pay. Patient had I & D procedure today performed by Dr. Flores. Inpt status is pending dependent on Operative notes. ELEVATING GRADER OPERATOR enters room to meet with patient's sons Zhang and Darion. RN reports that patient is still in PACU after procedure. ELEVATING GRADER OPERATOR asks about private pay option if Medicare does not cover SNF rehab, it is reported that they may have funds to cover SNF rehab stay but endorse preference for Medicare coverage. ELEVATING GRADER OPERATOR discusses difference between Inpatient status and Observation which determines insurance coverage for SNF rehab. ELEVATING GRADER OPERATOR asks about half-way care plan. It is reported that their half-way care plan for patient is to get her into [facility]. ELEVATING GRADER OPERATOR calls [facility] and it is reported that there is still a current referral in place for patient. Patient's son endorses that they received call from [facility] RN Charlotte, who indicated that as well. Son reports that Charlotte was the RN who recommended ED visit and recommends SNF rehab for patient. Plan: POC pending on insurance status and PT evaluation. Proceed with SNF rehab search private pay vs. Medicare coverage or covid waiver. Medical clearance for patient is not determined at this time. F/u with [facility] regarding POC. OZZIE Lai
--- NOTE | 2022-02-18 15:27 | SUR.PHASEI ---
Reported to receiving Nurse Mirian NOEL that patient's urine was malodorous and had sediment present in tubing. Advised that a urine specimen be sent for analysis to r/o infection.
--- NOTE | 2022-02-18 15:50 | PC.NURSE ---
DayShift Pt returned to Acute Care floor at 1540 via bed. Pt denies any pain or nausea, orientated to call light and room phone, Pt instructed to insparameter and did 5 consecutive inhales. Pt is repositioned with pillows for comfort. BP 125/65 81 Spo2 94%, Pt O2 dropped with movement placed NC @ 2 liters and Spo2 returned to 97%.
[2022-02-18 18:22] LABS: Appearance Urine UA CLEAR; Bilirubin Urine UA NEGATIVE (NEGATIVE); Color Urine UA YELLOW; Glucose Urine UA NEGATIVE (Negative); Ketones Urine UA NEGATIVE (NEGATIVE); Leukocyte Esterase Urine UA TRACE (NEGATIVE); Nitrite Urine UA NEGATIVE (Negative); Occult Blood Urine UA NEGATIVE (Negative); Protein Urine UA NEGATIVE (Negative); Specific Gravity Urine UA <=1.005 (1.000-1.035); Urobilinogen Urine UA 0.2 E.U./dL (0.2)
[2022-02-18 18:24] LABS: pH Urine UA 6.5 (4.5-8.0)
[2022-02-18 18:31] LABS: Bacteria Urine Occasional (0-1); Culture Indicated Urine Specimen Cultured; RBC Urine None Seen (0-5/HPF); WBC Urine 5-10/HPF (0-5/HPF)
[2022-02-18] MEDS: DOCUSATE 100 MG CAPSULE PO (20:34)
--- NOTE | 2022-02-18 22:04 | PC.NURSE ---
Addendum entered by Delisa David R.N. 02/19/22 02:18: Patient refusing to lie on right side saying with her illness she is not able to tolerate it. Judit bed tilted to relieve pressure but patient became angry and hollering stating I'm the patient, I have rights. Discussed with her the pressure ulcers and purpose of coming to hospital and she states I came for help and I got it, so now leave me alone. Bed placed flat per her request. Original Note: Patient is alert and oriented. Breath sounds CTA with RA sat of 97%. HRR but has low BP of 96/52 (MAP 73) and has been trending low since surgery. BT present and abdomen soft but denies passing flatus. Indwelling catheter is patent; urine is clear, pale, yellow. Dressings to bilateral feet CDI; CMS intact with good capillary refill and able to wiggle toes. Dressing to lateral right leg intact with serosanguinous drainage. Dressing to coccyx is intact but also has serosanguinous drainage. Had I&D earlier today and will be treating with wet-to-dry dressings. Denies pain. Is able to assist with repositioning but needing to be turned q2h; using pillows to float heels and has heel protectors on as well. Weak in left LE and is unable to move right LE. Fall risk score is high and bed alarm is activated. Continues on contact isolation while MRSA is being ruled out via cultures obtained yesterday and today.
[2022-02-19] VITALS: BP 97/41; PULSE 73; RESP 18; TEMP 36.6; O2SAT 97
[2022-02-19] MEDS: PIPERACILLIN/TAZO 3.375 GM in SODIUM CHLORIDE 0.9% 100 ML IV ×4 (00:08→23:38)
[2022-02-19] MEDS: SODIUM CHLORIDE 0.9% FLUSH 10 ML IV ×3 (00:09→23:36)
[2022-02-19 04:57] VITALS: BP 100/44; PULSE 72; RESP 16; TEMP 36.9; O2SAT 94
--- NOTE | 2022-02-19 05:16 | P.PN_ITS ---
Subjective Subjective Date Patient Seen: 02/19/22 Interval history: 81-year-old Female with primary lateral sclerosis, type 2 diabetes, hyperlipidemia hypertension, and hypothyroidism who admitted loss night with progressive necrotic decubitus wounds and worsening mobility issues. Patient reports she is feeling reasonably well today. She states last night the cage shift manager nurse tried to get her to roll on her right side but she declined as she had debridements performed on her right calf as well as her feet and buttocks. She states the nurse was upset with her but ultimately left the room. She reports today she is doing fairly well though expresses concern over the depth of her wounds. Her son is present at bedside. He reports he will be going back to [place] soon. Patient did work with physical therapy but was unable to do much other than get up to bedside. Exam Vital Signs (past 8 hours): - 02/19/22 00:00 02/19/22 04:57 Temperature 97.9 F 98.4 F Pulse Rate 73 72 Respiratory Rate 18 16 Blood Pressure 97/41 L 100/44 L Pulse Oximetry 97 94 Oxygen Flow Rate 0 0 Oxygen Delivery Method Room Air Oxygen Flow Rate 0 Narrative Exam Narrative: GEN: Alert and oriented x 3, NAD HEENT:NC, Face symmetric CHEST: Respiratory excursions symmetric, CTAB CV: RRR, no M/R/G ABD: Soft, NT/ND, BT present in all 4 quadrants, no organomegaly or masses EXTR: warm, well perfused, no C/C/E SKIN: warm and dry, no rash; right buttock ulcer has been debrided and packed with wet to dry dressings, entirety of the eschar was removed; bilateral heels have also been debrided, as was a wound on her right lateral calf; yesterday the buttock wound was notably quite malodorous, that odor is gone today NEURO: Alert and oriented x 3, nonfocal Objective Labs Result Diagrams: 02/19/22 06:30 02/19/22 06:30 Labs: Laboratory Results - last 24 hr 02/18/22 02/18/22 02/18/22 06:10 06:10 06:10 WBC 7.0 RBC 3.08 L Hgb 9.3 L Hct 28.3 L MCV 92.0 MCH 30.1 MCHC 32.7 RDW 15.7 H Plt Count 339 Neut % (Auto) 54.4 Lymph % (Auto) 22.9 L [place] % (Auto) 12.3 Eos % (Auto) 9.3 H Baso % (Auto) 1.1 Neut # (Auto) 3800 Lymph # (Auto) 1600 [place] # (Auto) 900 Eos # (Auto) 600 H Baso # (Auto) 100 Sodium 137 Potassium 4.2 Chloride 104 Carbon Dioxide 26 BUN 23 H Creatinine 0.72 Estimated GFR > 60 BUN/Creatinine Ratio 31.9 H Glucose 97 Calcium 8.4 Iron 49 TIBC 201 L % Saturation 24 Transferrin 139 L Total Bilirubin 0.2 AST 19 ALT 13 Alkaline Phosphatase 66 Total Protein 6.1 L Albumin 3.0 L Globulin 3.1 Albumin/Globulin Ratio 1.0 Vitamin B12 TSH 14.00 H Free T4 1.51 Urine Color Urine Appearance Urine pH Ur Specific [place] Urine Protein Urine Glucose (UA) Urine Ketones Urine Occult Blood Urine Nitrate Urine Bilirubin Urine Urobilinogen Ur Leukocyte Esterase Urine RBC Urine WBC Urine Bacteria Ur Culture Indicated? 02/18/22 02/18/22 06:10 18:05 WBC RBC Hgb Hct MCV MCH MCHC RDW Plt Count Neut % (Auto) Lymph % (Auto) [place] % (Auto) Eos % (Auto) Baso % (Auto) Neut # (Auto) Lymph # (Auto) [place] # (Auto) Eos # (Auto) Baso # (Auto) Sodium Potassium Chloride Carbon Dioxide BUN Creatinine Estimated GFR BUN/Creatinine Ratio Glucose Calcium Iron TIBC % Saturation Transferrin Total Bilirubin AST ALT Alkaline Phosphatase Total Protein Albumin Globulin Albumin/Globulin Ratio Vitamin B12 659 TSH Free T4 Urine Color Yellow Urine Appearance Clear Urine pH 6.5 Ur Specific [place] <=1.005 Urine Protein Negative Urine Glucose (UA) Negative Urine Ketones Negative Urine Occult Blood Negative Urine Nitrate Negative Urine Bilirubin Negative Urine Urobilinogen 0.2 Ur Leukocyte Esterase Trace H Urine RBC None seen Urine WBC 5-10/hpf H Urine Bacteria Occasional (0-1) Ur Culture Indicated? Specimen cultured [facility] Medical History Diabetes Hypertension Hypothyroid Social History household members: family and none Smoking Status: Former smoker Assessment & Plan Assessment & Plan narrative: 1. Primary lateral sclerosis Patient has had progressive difficulties with mobility.? She has been wheelchair bound.? Recently, her on hospice.? Son lives in [place].? She will likely require placement at discharge.? PT evaluation done today with recommendation for rehab. OT evaluation pending. 2. Necrotic decubitus ulcers, POD #1 from surgical debridement Pt was taken to the OR yesterday by gen surgery and debridement of RLE/feet/buttock decubitus ulcers was accomplished. Continue local wound care and Zosyn (initiated yesterday). Anticipate discontinuation of Zosyn tomorrow if her wounds continue to show lack of infection. Could consider continuing an oral antibiotic at that time. 3. Diabetes mellitus type 2 Remains on metformin.? Continue controlled carb diet. 4. Hypertension Continue lisinopril.? Blood pressure mildly hypotensive. Will add holding parameters. 5. Hyperlipidemia Continue statin therapy.? 6. Normocytic anemia Iron studies were performed and consistent with anemia of chronic inflammatory disease. Hemoglobin is down from 9 0.3-8.0 today. Likely she has had some acute blood loss secondary to the surgical debridements performed yesterday in the setting of her chronic normocytic anemia of inflammatory disease 7. Azotemia BUN was 31 on admission, it was improved yesterday down to 23.? Today it has normalized. Code status DNR Prophylaxis Chemical prophylaxis deferred pending evaluation for general surgery Disposition Very likely will require placement at discharge as she is unable to care for herself and her next of kin lives out of state Time Spent With Patient Critical Care time: I spent a total of [] minutes of critical care time on this patient's care today; this time is exclusive of procedural time. Quality VTE Deep Vein Thrombosis/Pulmonary Embolism Present on Admission: No
[2022-02-19] MEDS: PANTOPRAZOLE DR 20 MG TABLET PO (06:13)
[2022-02-19] MEDS: LEVOTHYROXINE 112 MCG TABLET PO (06:13)
[2022-02-19 07:00] VITALS: BP 108/51; PULSE 79; RESP 18; TEMP 36.4; O2SAT 95
[2022-02-19] MEDS: ENOXAPARIN 40 MG/0.4 ML SYRINGE SUBCUT (07:40)
[2022-02-19] MEDS: METFORMIN HCL 500 MG TABLET PO (07:42)
[2022-02-19] MEDS: DOCUSATE 100 MG CAPSULE PO ×2 (07:42→23:36)
[2022-02-19] MEDS: ATORVASTATIN 20 MG TABLET 10 MG PO (07:42)
[2022-02-19 08:03] LABS: Add Manual Diff / Slide Review NO; Basophils Absolute Auto 100 /uL (0-100); Basophils Percent Auto 0.9 % (0-2); Eosinophils Absolute Auto 300 /uL (0-450); Eosinophils Percent Auto 4.8 % (2-4); Hematocrit 23.5 % (36-46); Lymphocytes Absolute Auto 1000 /uL (1100-4500); Lymphocytes Percent Auto 14.5 % (25-40); Mean Corpuscular HGB Conc 33.8 % (30-36); Mean Corpuscular Hemoglobin 30.9 PG (26-34); Mean Corpuscular Volume 91.4 fL (80-100); Monocytes Absolute Auto 600 /uL (0-900); Monocytes Percent Auto 9.2 % (3-14); Neutrophils Absolute Auto 4900 /uL (1500-7000); Neutrophils Percent Auto 70.6 % (50-75); Platelet Count 302 X10^3/uL (150-400); Red Blood Cell Count 2.58 X10^6/uL (4.0-5.2); Red Cell Distribution Width 16.3 % (11.6-14.8)
[2022-02-19 08:25] LABS: BUN Creatinine Ratio 18.2 (6-22); Blood Urea Nitrogen 14 mg/dL (7-17); Calcium 8.1 mg/dL (8.4-10.2); Carbon Dioxide 29 mmol/L (22-32); Chloride 104 mmol/L (98-107); Estimated Glomerular Filt Rate > 60 mL/min (>60); Glucose 107 mg/dL (80-110); HEMOLYSIS < 15 (0-50); Potassium 4.3 mmol/L (3.4-5.1); Sodium 136 mmol/L (137-145)
--- NOTE | 2022-02-19 11:25 | PT.IIE ---
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 (02/17/22) Surgery Performed Operation Date: 02/18/22 12:30 Actual Procedures p Incision and Drainage Wound/General decubitus ulcers posterior right gluteus, right posterior mid thigh, bilateral foot bottom(Right) - Jorge Luis Flores MD Medical History (Last Reviewed 02/18/22 @ 11:15 by Jorge Luis Flores MD) Diabetes Hypertension Hypothyroid Physical Therapy Inpatient Evaluation/Re-Eval M1 PT/OT-IP Prior Functional Status Start: 02/19/22 08:36 Freq: NEEDED Status: Active Protocol: Document 02/19/22 11:25 AW (Rec: 02/19/22 12:10 AW [id number]) Medical Review Prior Functional Status Medical History Reviewed Yes Communication WNL. Pt is an effective verbal communicator. Mobility and Gait Andra is able to move herself on her adjustable bed with heavy use of bedrail (on the left side). She mobilizes in a manual wheelchair which she propels with her UE's. Approx one month ago, she was able to stand pivot transfer to her wheelchair using 4WW. A few months ago, she was able to walk short household distances with 4WW. More recently, she has been using a jovon lift to transfer to bed and wheelchair. Activities of Daily Living and IADL's Pt is able to change her shirt and nightgown. She needs assist with toileting. She takes sponge baths and does not use the shower. Prior Functional Level (Other details) Pt is active with [facility] [employer]. She gets Meals on Wheels delivered. Social History Household Members family,none Living Arrangements House Number of Floors (Floors) One Floor Number of Stairs To Enter/Railing? Level entrance at back of the house, can access with wheelchair. Home Equipment Four Wheel Walker,Manual Wheelchair,Power Wheelchair/ Scooter,Mechanical Lift,Bed Rails Additional Social History Comment Pt has an adjustable bed with rails. Her spouse within the past month. Their son who lives in [place] has been staying with her since before her spouse dies. He may be able to stay but not sure how long. He has been assisting pt with jovon transfers. M2 PT-IP Current Condition Start: 02/19/22 08:36 Freq: NEEDED Status: Active Protocol: Document 02/19/22 11:25 AW (Rec: 02/19/22 12:10 AW [id number]) Physical Therapy Current Condition Current Condition Evaluation Date 02/19/22 Treatment Diagnosis stage 4 sacral PI; BLE wounds; primary lateral sclerosis; impaired mobility Onset Date 02/04/22 M3 PT-IP Subjective Start: 02/19/22 08:36 Freq: NEEDED Status: Active Protocol: Document 02/19/22 11:25 AW (Rec: 02/19/22 12:10 AW [id number]) Subjective Physical Therapy Visit Type Type Initial Evaluation Visit Start Time 10:20 Visit Stop Time 11:25 Total Visit Minutes 52 Notes Split visits [id number] and [id number]. Spoke with hospitalist to clarify any weightbearing restrictions. Doctor confirmed no restrictions. Ok with activity order up to chair. Physical Therapy Visit Comments Patient Comments Pt is willing to participate with PT. Patient Goals Be able to transfer with walker Therapy Pain Assessment Pain When Pain Assessed During Mobility Pain Present Pain Present Denied Pain M4 PT-IP Mobility and Gait Start: 02/19/22 08:36 Freq: NEEDED Status: Active Protocol: Document 02/19/22 11:25 AW (Rec: 02/19/22 12:10 AW [id number]) PT-Bed Mobility Assessment Rolling Type of Rolling Roll to Right,Roll to Left Level of Assist Moderate Assistance,Maximal Assistance,2 Person Assistance Supine to Sit Supine to Sit Maximum Assistance,Total Assistance,1 Person Assistance ,Head of Bed Elevated,Bedrails Sit to Supine Sit to Supine Total Assistance,2 Person Assistance Scooting Scooting to Edge of Bed Maximum Assistance Scooting Up and Down in Bed Dependent PT-Transfer Assessment Sit to and From Stand Sit to and from Stand Maximum Assistance,Total Assistance,2 Person Assistance ,Use of Upper Extremities Equipment Transfer Assistive Device Gait Belt,Front Wheeled Walker Orthotic/Prosthetic Devices or Brace: No Transfers Transfer Technique sit<>stand Comments Mobility Comments Andra was lying in bed as PT arrived. She agreed to sit up EOB. She was unable to move her RLE toward right EOB and needed total assist. She used BUE to move her LLE toward EOB with PT assist. Max to total A to scoot toward EOB with extra care due to sacral PI. With feet flat on the ground, she attempted to stand but was unable to extend her knees even with max/total A x 2 and FWW. PT and RN agreed not to use jovon out of concern for shear forces across sacrum. Pt sat and needed total assist x 2 for return to supine. Rolling side to side for pad placement required max A x 2 and pt was dependent for scooting up on the bed. Pt was left with RN attending. Gait Assessment Comments Gait Comments Unable at this time. Stair Climbing Assessment Comments Stair Climbing Comments No stairs at home. PT-Balance Assessment Sitting Balance and Reactions Static Sitting Balance Ability Good Dynamic Sitting Balance Ability Fair Standing Balance and Reactions Static Standing Balance Ability Poor Dynamic Standing Balance Ability Poor Device Used FWW Comments Other Balance Tests/Deviations/Treatment Unable to extend knees and : hips for standing. M5 PT-IP Objective Assessments Start: 02/19/22 08:36 Freq: NEEDED Status: Active Protocol: Document 02/19/22 11:25 AW (Rec: 02/19/22 12:10 AW [id number]) Orientation Orientation/Cognition Level of Alertness Alert Orientation Name,Day of Week,Place, Situation Language Function Ability No Deficits Noted Safety Awareness Understands Safety Issues Memory Description No Deficits Noted Gross Range of Motion Upper Extremity ROM Assessment Right Impaired Impairments RUE lacks elevation. Pt compensates with shoulder shrug but is unable to get her arm behind her head/body. Lower Extremity ROM Assessment Bilaterally Impaired Impairments Lacking dorsiflexion bilaterally with right more severely affected. Strength Lower Extremity Strength Assessment Bilaterally Impaired Hip L 3-/5; R 2-/5 Knee L 3+/5; R 2-/5 Ankle L 3+/5; R 2-/5 Sensation Assessment Sensation Gross Sensation Right LE Impaired Light Touch Impaired Proprioception (Position) Impaired Comments Sensation Comments Dull light touch sensation RLE Muscle Tone Muscle Tone Location Right Lower Extremity Type of Tone Hypotonicity Severity of Tone Severe M6 PT-IP Treatment Start: 02/19/22 08:36 Freq: NEEDED Status: Active Protocol: Document 02/19/22 11:25 AW (Rec: 02/19/22 12:10 AW [id number]) Physical Therapy Treatment Education Education Provided Safety M7 PT-IP Assessment and Plan Start: 02/19/22 08:36 Freq: NEEDED Status: Active Protocol: Document 02/19/22 11:25 AW (Rec: 02/19/22 12:10 AW [id number]) PT Summary Assessment and Plan Potential Rehabilitation Potential Fair Status of Condition at Evaluation Evolving Summary Impairments Pain,ROM,Strength,Balance, Sensation,Tone,Bed Mobility, Transfers,Gait,Activity Tolerance Assessment Summary Andra is a 81 yo woman with primary lateral sclerosis seen for PT evaluation on POD1 following I&D for multiple stage 4 pressure injuries - sacral, right lateral thigh, bilateral feet/heels. PLOF: Pt was able to transfer and ambulate household distances with 4WW and to propel herself in a manual wheelchair. In the past one month, her mobility has declined and she has become dependent on jovon lift to transfer. CLOF: Pt requires max/total assist x 1- 2 for bed mobility and is unable to stand with max assist x 2. She will require SNF rehab to improve her strength and mobility independence. She may ultimately need long-term placement as she lives alone. Goals Bed Mobility Goal Minimal Assistance Transfer Goal Moderate Assistance,Front Wheeled Walker Gait Goal Moderate Assistance,Front Wheel Walker Gait Distance 10 Days to Meet Goals 10 Frequency of Treatment Frequency Of Treatment Once a Day Treatment Plan Physical Therapy Treatment Plan Bed Mobility Training,Transfer Training,Gait Training, Therapeutic Exercise,Balance Retraining,Post Op Education, Discharge Planning,Hot or Cold Pack,Neuromuscular Re-ed Other Recommendations and Next Treatment bed mobility; ther ex for LE Focus strength; attempt to stand Precautions Other Precautions sacral and LE stage IV pressure injuries - avoid excessive shear Recommendations To Nursing Amount of Assist Needed Mechanical Lift Discharge Recommendations PT Discharge Recommendations SNF Rehab Transportation Needs at Discharge Wheelchair/Cabulance,Stretcher /Ambulance
[2022-02-19 11:47] VITALS: BP 101/53; PULSE 82; RESP 18; TEMP 36.5; O2SAT 95
--- NOTE | 2022-02-19 11:57 | PM.CALLCOV.1 ---
Call Coverage Note Note Date of Patient Contact: 02/19/22 Time of Patient Contact: 11:58 Narrative of Care Provided: extensive decubitus ulcers POD 1 sp debridement. Wet to dry dressing twice daily. Call with questions.
--- NOTE | 2022-02-19 14:32 | PC.NURSE ---
Addendum entered by Mirian Winston R.N. 02/19/22 14:49: Pt tolerated all dressing changes well. Pt denied any pain. Original Note: Day Shift Changed all wet /dry dressing, using sterile 4x4 gauze, sterile water, and kerlex gauze,with coban wrap. 1 large dressing on the coccyx, with 8 qty 4x4 sterile gauze with sterile water, covered with 4 qty 4x4 dry, then used 4 strips of MEDFIX Dressing Retention Tape to adhere dressings. Changed both heals dressings used sterile 4x4 gauze, sterile water with dry 4x4 gauze wrapped in Kerlex Gauze then loosely wrapped in coban to secure dressings. 2 lateral dressings changed on the Right thigh / knee location with sterile 4x4 gauze, sterile water covered/secured with 3M meditape patches 4x4.
--- NOTE | 2022-02-19 15:49 | CM.DPC ---
DCP/continued: Reviewed chart. Per provider in AM rounds patient not medically stable for discharge today. PT evaluation completed and SNF recommended. Several SNF's were faxed for review but no call back as of today. In addition, [employer] faxed clinical to [facility] for review. Also OT evaluation ordered today. P: Pending. Anticipate patient will need SNF when medically stable. Several facilities reviewing. ANDREINA
[2022-02-19] MEDS: INSULIN LISPRO 100 UNIT/ML 3ML VIAL SUBCUT (16:33)
[2022-02-19 20:16] VITALS: BP 102/51; PULSE 84; RESP 18; TEMP 36.6; O2SAT 96
--- NOTE | 2022-02-20 04:31 | PC.NURSE ---
Pt very pleasant and joking with staff. Son and friend were at bedside beginning of shift. RN completed all dressing changes. Pt verbalized pain during dressing pain, rn recommends to medicate before changing dressings. Pt states 2 weeks ago and is getting through it. Rn sat and talked with pt for a while about and their life. Pt seemed very appreciative. Wound care and dietitian consult has been ordered.
[2022-02-20] MEDS: LEVOTHYROXINE 112 MCG TABLET PO (06:39)
[2022-02-20] MEDS: PANTOPRAZOLE DR 20 MG TABLET PO (06:39)
[2022-02-20] MEDS: PIPERACILLIN/TAZO 3.375 GM in SODIUM CHLORIDE 0.9% 100 ML IV (06:40)
[2022-02-20 07:00] VITALS: BP 98/52; PULSE 80; RESP 16; TEMP 36.7; O2SAT 95
--- NOTE | 2022-02-20 07:56 | P.PN_ITS ---
Subjective Subjective Date Patient Seen: 02/20/22 Time Patient Seen: 11:00 Interval history: Patient doing well and has no complaints. She is currently on her side to relieve pressure on her buttocks where wound vac placed. Heel boots are in place. Exam Vital Signs (past 8 hours): Oxygen Delivery Method Room Air Oxygen Flow Rate 0 Narrative Exam Narrative: GEN: Alert and oriented x 3, NAD HEENT:NC, Face symmetric CHEST: Respiratory excursions symmetric, CTAB CV: RRR, no M/R/G ABD: Soft, NT/ND, BT present in all 4 quadrants, no organomegaly or masses EXTR: warm, well perfused, no C/C/E SKIN: warm and dry, no rash; right buttock ulcer with wound vac in placed, heels wrapped and have pressure boots in place NEURO: Alert and oriented x 3, nonfocal Objective Labs Result Diagrams: 02/19/22 06:30 02/19/22 06:30 Labs: Laboratory Results - last 24 hr 02/19/22 02/19/22 06:30 06:30 WBC 7.0 RBC 2.58 L Hgb 8.0 L Hct 23.5 L MCV 91.4 MCH 30.9 MCHC 33.8 RDW 16.3 H Plt Count 302 Neut % (Auto) 70.6 Lymph % (Auto) 14.5 L [place] % (Auto) 9.2 Eos % (Auto) 4.8 H Baso % (Auto) 0.9 Neut # (Auto) 4900 Lymph # (Auto) 1000 L [place] # (Auto) 600 Eos # (Auto) 300 Baso # (Auto) 100 Sodium 136 L Potassium 4.3 Chloride 104 Carbon Dioxide 29 BUN 14 Creatinine 0.77 Estimated GFR > 60 BUN/Creatinine Ratio 18.2 Glucose 107 Calcium 8.1 L [facility] Medical History Diabetes Hypertension Hypothyroid Social History household members: family and none Smoking Status: Former smoker Assessment & Plan Assessment & Plan narrative: 1. Primary lateral sclerosis Patient has had progressive difficulties with mobility.? She has been wheelchair bound.? Recently, her on hospice.? Son lives in [place].? She will likely require placement at discharge.? PT evaluation done today with recommendation for rehab. OT agrees with SNF. 2. Necrotic decubitus ulcers, POD #1 from surgical debridement Pt was taken to the OR yesterday by gen surgery and debridement of RLE/feet/buttock decubitus ulcers was accomplished. Continue local wound care with wound vac. Wound cultures growing ESBL so Zosyn changed to meropenem IV. 3. Diabetes mellitus type 2 Remains on metformin.? Continue controlled carb diet. 4. Hypertension Continue lisinopril.? Blood pressure mildly hypotensive. Will add holding parameters. 5. Hyperlipidemia Continue statin therapy.? 6. Normocytic anemia Iron studies were performed and consistent with anemia of chronic inflammatory disease. Hemoglobin is down from 9 0.3-8.0 today. Likely she has had some acute blood loss secondary to the surgical debridements performed yesterday in the setting of her chronic normocytic anemia of inflammatory disease 7. Azotemia BUN was 31 on admission, it was improved yesterday down to 23.? Today it has normalized. Code status DNR Prophylaxis Lovenox Disposition SNF on 02/21. Time Spent With Patient Critical Care time: I spent a total of [] minutes of critical care time on this patient's care today; this time is exclusive of procedural time. Quality VTE Deep Vein Thrombosis/Pulmonary Embolism Present on Admission: No
[2022-02-20] MEDS: ENOXAPARIN 40 MG/0.4 ML SYRINGE SUBCUT (09:15)
[2022-02-20] MEDS: SODIUM CHLORIDE 0.9% FLUSH 10 ML IV ×2 (09:16→22:14)
[2022-02-20] MEDS: METFORMIN HCL 500 MG TABLET PO (09:16)
[2022-02-20] MEDS: DOCUSATE 100 MG CAPSULE PO ×2 (09:16→22:14)
[2022-02-20] MEDS: ATORVASTATIN 20 MG TABLET 10 MG PO (09:16)
[2022-02-20] MEDS: TRAMADOL 50 MG TABLET PO ×2 (09:21→20:42)
--- NOTE | 2022-02-20 09:35 | PC.RNWOUND ---
Addendum entered by Antonieta Grant R.N. 02/20/22 11:55: Wounds all dressed to orders and patient repositioned onto left side with pillows completely offloading right buttock wound, importance of keeping all weight off wounds for healing explained to patient who verbalizes understanding, foam heel boots on bilaterally. Patient says pain now at 2/10, reports comfort. Original Note: Right Buttock Right Posterior Thigh and Right Lateral Knee Left Heel Left Posterior Thigh Patient resting in bed, turns to left side with assist for dressing changes, rates pain to 4/10 to R Buttock wound. Dressing to buttock wound removed to reveal a 14 x 5 x 4cm stage 4 pressure injury extending into subcutaneous tissue, muscle, with 40% of this tissue appearing light hummel/necrotic. Wound edges are intact and well-defined with some periwound redness and purple discoloration noted to the gluteal cleft. Right Posterior Thigh Stage 3 pressure injury measures 2.7 x 6 x 1.5cm with undermining from 1 o'clock to 4 o'clock with 2.2cm deepest undermining (at 3 o'clock). This wound has 25% slough and 75% pale pink hypogranular tissue. Left posterior Thigh has a 1 x 4.5 x 0.05cm partial-thickness Stage 2 pressure injury. These posterior thigh pressure injuries appear to be where legs rested on edge of patient's wheelchair. Right Lateral Knee Stage 3 pressure injury measures 3 x 4.5 x 1 cm with 80% yellow adherent slough and 20% red granular tissue. Right Lateral Foot stage 4 pressure injury measures 15 x 2.8 x 0.8cm with 50% yellow and hummel necrotic tissue and 50% light pink nongranular tissue. (Photo of this wound will be obtained at this clinician's next opportunity at latest.) Left Heel has what appears to be a 5.5 x 4 x 1cm stage 4 pressure injury with 80% slough/necrotic tissue and 20% red granular tissue. These wounds all have a moderate amount of serosanguineous drainage to removed dressings, no malodor noted to any of these wounds. Edges are all well-defined. Recommendation is for nutritional support, low air loss bed rental if patient remaining at this facility, wound vac therapy with 3x week dressing changes.
--- NOTE | 2022-02-20 11:30 | PT.IPTN ---
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 (02/17/22) Surgery Performed Operation Date: 02/18/22 12:30 Actual Procedures p Incision and Drainage Wound/General decubitus ulcers posterior right gluteus, right posterior mid thigh, bilateral foot bottom(Right) - Jorge Luis Flores MD Physical Therapy Treatment Note M2 PT-IP Current Condition Start: 02/19/22 08:36 Freq: NEEDED Status: Active Protocol: Document 02/19/22 11:25 AW (Rec: 02/19/22 12:10 AW [id number]) Physical Therapy Current Condition Current Condition Evaluation Date 02/19/22 Treatment Diagnosis stage 4 sacral PI; BLE wounds; primary lateral sclerosis; impaired mobility Onset Date 02/04/22 M3 PT-IP Subjective Start: 02/19/22 08:36 Freq: NEEDED Status: Active Protocol: Document 02/20/22 11:30 AW (Rec: 02/20/22 12:28 AW [id number]) Subjective Physical Therapy Visit Type Type Treatment Note Visit Start Time 10:59 Visit Stop Time 11:30 Total Visit Minutes 31 Notes Co-tx with OT due to pt's complex medical needs Physical Therapy Visit Comments Patient Comments Pt is willing to participate with PT. Patient Goals Get up to chair today Therapy Pain Assessment Pain When Pain Assessed During Mobility Pain Present Pain Present Pain Reported Location right buttock Scale Used not quantified Pain Behaviors Facial Grimacing,Wincing Pain Management Techniques Modification of Treatment,Re- positioning M4 PT-IP Mobility and Gait Start: 02/19/22 08:36 Freq: NEEDED Status: Active Protocol: Document 02/20/22 11:30 AW (Rec: 02/20/22 12:28 AW [id number]) PT-Bed Mobility Assessment Rolling Type of Rolling Roll to Right,Roll to Left Level of Assist Moderate Assistance,Maximal Assistance,2 Person Assistance Supine to Sit Supine to Sit Maximum Assistance,2 Person Assistance,Head of Bed Elevated,Bedrails Scooting Scooting to Edge of Bed Maximum Assistance PT-Transfer Assessment Sit to and From Stand Sit to and from Stand Maximum Assistance,2 Person Assistance,Use of Upper Extremities Equipment Transfer Assistive Device Gait Belt,Front Wheeled Walker Orthotic/Prosthetic Devices or Brace: No Transfers Transfer Destination Chair Transfer Technique Mechanical Lift Transfer Ability Level of Assist Total Assistance,2 Person Assistance Comments Mobility Comments Andra had just had her wound dressings changed as PT and OT arrived. Educated pt on importance of offloading her wounds and doing regular pressure relief. Max A x 2 to sit up EOB via log roll. Pt's sitting balance is good. She was able to lean right and left for PT and OT to assist with moving forward on the bed with decreased shear. With feet on the floor, pt used her UE's to position her RLE. She was able to perform pressure relief ~8 times with PT blocking her knees and OT assessing liftoff from the back. Pt was able to get weight onto her feet and to clear her hips for pressure relief after multiple reps. 1/ 2 of reps were with bed cane on left side to push off and 1 /2 of reps were with pulling on the walker frame. Pt agreed to jovon transfer to the chair. Waffle cushion was on the chair. Pt tolerated mechanical lift transfer with PT and OT supporting her legs to relieve pressure on posterior thigh wounds. Sitting on the chair, she was able to shift her weight left/ right and to hold for 10 seconds at a time. She was left sitting upright in the chair. Discussed with RN and advised transfer back to bed via jovon after lunch Gait Assessment Comments Gait Comments Unable at this time. Stair Climbing Assessment Comments Stair Climbing Comments No stairs at home. PT-Balance Assessment Sitting Balance and Reactions Static Sitting Balance Ability Good Dynamic Sitting Balance Ability Fair Standing Balance and Reactions Static Standing Balance Ability Poor Dynamic Standing Balance Ability Poor Device Used FWW Comments Other Balance Tests/Deviations/Treatment Able to do pressure relief : sitting EOB with feet flat on the floor. Able to get some weight onto feet but not able to stand with max A x 2. M5 PT-IP Objective Assessments Start: 02/19/22 08:36 Freq: NEEDED Status: Active Protocol: Document 02/19/22 11:25 AW (Rec: 02/19/22 12:10 AW [id number]) Orientation Orientation/Cognition Level of Alertness Alert Orientation Name,Day of Week,Place, Situation Language Function Ability No Deficits Noted Safety Awareness Understands Safety Issues Memory Description No Deficits Noted Gross Range of Motion Upper Extremity ROM Assessment Right Impaired Impairments RUE lacks elevation. Pt compensates with shoulder shrug but is unable to get her arm behind her head/body. Lower Extremity ROM Assessment Bilaterally Impaired Impairments Lacking dorsiflexion bilaterally with right more severely affected. Strength Lower Extremity Strength Assessment Bilaterally Impaired Hip L 3-/5; R 2-/5 Knee L 3+/5; R 2-/5 Ankle L 3+/5; R 2-/5 Sensation Assessment Sensation Gross Sensation Right LE Impaired Light Touch Impaired Proprioception (Position) Impaired Comments Sensation Comments Dull light touch sensation RLE Muscle Tone Muscle Tone Location Right Lower Extremity Type of Tone Hypotonicity Severity of Tone Severe M6 PT-IP Treatment Start: 02/19/22 08:36 Freq: NEEDED Status: Active Protocol: Document 02/20/22 11:30 AW (Rec: 02/20/22 12:28 AW [id number]) Physical Therapy Treatment Education Education Provided Safety Other Treatments Other Treatment Performed Counseled pt on importance of pressure relief in sitting and in bed. Educated pt to avoid shear forces as much as possible. M7 PT-IP Assessment and Plan Start: 02/19/22 08:36 Freq: NEEDED Status: Active Protocol: Document 02/20/22 11:30 AW (Rec: 02/20/22 12:28 AW [id number]) PT Summary Assessment and Plan Summary Impairments Pain,ROM,Strength,Balance, Sensation,Tone,Bed Mobility, Transfers,Gait,Activity Tolerance Progress Towards Goals Slow Progress due to Medical Issues,Slow Progress due to Activity Tolerance,Slow Progress - Other Assessment Summary Andra continues to need max assist x 2 for bed mobility. She was able to do some pressure relief sitting EOB and sitting in the chair today after jovon transfer. Discussed jovon transfer with nursing, specifically the need to support both legs during transfer to minimize pressure on posterior thigh wounds. Goals Bed Mobility Goal Minimal Assistance Transfer Goal Moderate Assistance,Front Wheeled Walker Gait Goal Moderate Assistance,Front Wheel Walker Gait Distance 10 Days to Meet Goals 10 Frequency of Treatment Frequency Of Treatment Once a Day Treatment Plan Physical Therapy Treatment Plan Bed Mobility Training,Transfer Training,Gait Training, Therapeutic Exercise,Balance Retraining,Post Op Education, Discharge Planning,Hot or Cold Pack,Neuromuscular Re-ed Other Recommendations and Next Treatment bed mobility; ther ex for LE Focus strength; pressure relief Precautions Other Precautions sacral and BLE stage IV pressure injuries - avoid excessive shear Recommendations To Nursing Amount of Assist Needed Mechanical Lift Discharge Recommendations PT Discharge Recommendations SNF Rehab Transportation Needs at Discharge Wheelchair/Cabulance,Stretcher /Ambulance
--- NOTE | 2022-02-20 11:31 | OT.IP.EVAL ---
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 (02/17/22) Surgery Performed Operation Date: 02/18/22 12:30 Actual Procedures p Incision and Drainage Wound/General decubitus ulcers posterior right gluteus, right posterior mid thigh, bilateral foot bottom(Right) - Jorge Luis Flores MD Past Medical History (Last Reviewed 02/18/22 @ 11:15 by Jorge Luis Flores MD) Diabetes Hypertension Hypothyroid Occupational Therapy Inpatient Evaluation/Re-Eval M1 PT/OT-IP Prior Functional Status Start: 02/19/22 08:36 Freq: NEEDED Status: Active Protocol: Document 02/20/22 13:20 CGR (Rec: 02/20/22 13:37 CGR [id number]) Medical Review Prior Functional Status Medical History Reviewed Yes Communication WNL. Pt is an effective verbal communicator. Mobility and Gait Andra is able to move herself on her adjustable bed with heavy use of bedrail (on the left side). She mobilizes in a manual wheelchair which she propels with her UE's. Approx one month ago, she was able to stand pivot transfer to her wheelchair using 4WW. A few months ago, she was able to walk short household distances with 4WW. More recently, she has been using a jovon lift to transfer to bed and wheelchair. Activities of Daily Living and IADL's Pt is able to change her shirt and nightgown. She needs assist with toileting. She takes sponge baths and does not use the shower. Prior Functional Level (Other details) Pt is active with [facility]. She gets Meals on Wheels delivered. Social History Household Members family,none Living Arrangements House Number of Floors (Floors) One Floor Number of Stairs To Enter/Railing? Level entrance at back of the house, can access with wheelchair. Home Equipment Four Wheel Walker,Manual Wheelchair,Power Wheelchair/ Scooter,Mechanical Lift,Bed Rails Additional Social History Comment Pt has an adjustable bed with rails. Her spouse within the past month. Their son who lives in [place] has been staying with her since before her spouse dies. He may be able to stay but not sure how long. He has been assisting pt with jovon transfers. M1 PT/OT-IP Prior Functional Status Start: 02/20/22 13:20 Freq: NEEDED Status: Active Protocol: Document 02/20/22 13:20 CGR (Rec: 02/20/22 13:37 CGR [id number]) Medical Review Prior Functional Status Medical History Reviewed Yes Communication WNL. Pt is an effective verbal communicator. Mobility and Gait Andra is able to move herself on her adjustable bed with heavy use of bedrail (on the left side). She mobilizes in a manual wheelchair which she propels with her UE's. Approx one month ago, she was able to stand pivot transfer to her wheelchair using 4WW. A few months ago, she was able to walk short household distances with 4WW. More recently, she has been using a jovon lift to transfer to bed and wheelchair. Activities of Daily Living and IADL's Pt is able to change her shirt and nightgown. She needs assist with toileting. She takes sponge baths and does not use the shower. Prior Functional Level (Other details) Pt is active with [facility] [employer]. She gets Meals on Wheels delivered. Social History Household Members family,none Living Arrangements House Number of Floors (Floors) One Floor Number of Stairs To Enter/Railing? Level entrance at back of the house, can access with wheelchair. Home Equipment Four Wheel Walker,Manual Wheelchair,Power Wheelchair/ Scooter,Mechanical Lift,Bed Rails Additional Social History Comment Pt has an adjustable bed with rails. Her spouse within the past month. Their son who lives in [place] has been staying with her since before her spouse dies. He may be able to stay but not sure how long. He has been assisting pt with jovon transfers. M2 OT-IP Current Condition Start: 02/20/22 13:20 Freq: Status: Active Protocol: Document 02/20/22 13:20 CGR (Rec: 02/20/22 13:37 CGR [id number]) Occupational Therapy Current Condition Current Condition Evaluation Date 02/20/22 Treatment Diagnosis primary lateral sclerosis, necrotic decubitus ulcers, stage 4 wounds. Diagnosis Onset Date 02/17/22 M3 OT- IP Subjective and Pain Start: 02/20/22 13:20 Freq: Status: Active Protocol: Document 02/20/22 13:20 CGR (Rec: 02/20/22 13:37 CGR [id number]) OT- Subjective Occupational Therapy Visit Type Type Initial Evaluation Visit Start Time 10:56 Visit Stop Time 11:31 Total Visit Minutes 35 Notes Partial co-treat with P.T. OT Pain Assessment Pain When Pain Assessed During Mobility Pain Present Pain Present Pain Reported Location right buttock Scale Used did not rate Pain Behaviors Facial Grimacing,Guarding, Wincing Management Techniques Distraction,Modification of Treatment,Re-positioning M4 OT- IP ADL's Start: 02/20/22 13:20 Freq: Status: Active Protocol: Document 02/20/22 13:20 CGR (Rec: 02/20/22 13:37 CGR [id number]) OT [id number] Comments OT Self-Feeding Comments not meal time OT ADL-Grooming Comments OT Grooming Comments not performed OT ADL-Oral Care Comments Oral Care Comments not performed OT ADL-Dressing General Eval Lower Body Dressing Ability Total Assistance Areas Needing Assistance Socks Comments OT Dressing Comments performed seated EOB, pt states that she typically can do while seated in bed with her legs still up but not sure is she could perform today. OT ADL-Toileting General Evaluation Toileting Ability Total Assistance Comments OT Toileting Comments Pt with lee. OT ADL-Bathing Comments OT Bathing Comments not performed M5 OT- IP IADL's Start: 02/20/22 13:20 Freq: Status: Active Protocol: Document 02/20/22 13:20 CGR (Rec: 02/20/22 13:37 CGR [id number]) OT-Instrumental Activities of Daily Living Deficits IADL Deficits Identified No Deficits Home Safety Awareness Awareness of Need for Assistance at Home Good Awareness Ability to Problem Solve Emergency Able to Problem Solve Situations Medication Management Medication Management No Deficits Identified Money Management Money Management No Deficits Identified Meal Preparation Meal Preparation Comments concerns regarding pt's ability to perform Nurse Researcher Nurse Researcher Comments concerns regarding pt's ability to perform Driving Driving Comments pt does not drive. M6 OT- IP Functional Cognition Start: 02/20/22 13:20 Freq: Status: Active Protocol: Document 02/20/22 13:20 CGR (Rec: 02/20/22 13:37 CGR [id number]) Cognitive Factors Limiting Selfcare Function Cognitive Ability Level of Alertness Alert Patient Orientation Name,Age,Birthday,Month,Date, Year,Day of Week,Place, Situation Attention Span Ability Capable of Focused Attention, Capable of Sustained Attention OT- Vision and Hearing OT- Hearing Assessment OT- Hearing Assessment WFL OT- Vision Assessment Visual Acuity Glasses For Reading Visual Attentiveness WFL Occular Pursuits WFL Visual Convergence WFL M7 OT- IP Mobility and Balance Start: 02/20/22 13:20 Freq: Status: Active Protocol: Document 02/20/22 13:20 CGR (Rec: 02/20/22 13:37 CGR [id number]) OT- Bed Mobility Assessment Supine to Sit Supine to Sit Assist Maximum Assistance,2 Person Assistance Scooting Scooting to Edge of Bed Maximum Assistance,2 Person Assistance OT-Transfer Assessment Sit to and From Stand Sit to and from Stand Maximum Assistance,2 Person Assistance Transfers Transfer Ability Total Assistance Technique Transfer Destination Bed,Chair Transfer Technique Mechanical Lift Devices Transfer Assistive Devices Gait Belt,Front Wheeled Walker Comments Mobility Comments Attempted sit to stand 8+ times with good clearance of her buttox but unable to get into standing. Pt was hoyered with 2 person assist to hold legs up d/t wounds on back of legs and placement of jovon sling. OT- Gait Assessment Comments Gait Ability Comments did not perform OT- Balance Assessment Sitting Balance and Reactions Static Sitting Balance Ability Normal Dynamic Sitting Balance Ability Good M8 OT- IP Objective Assessments Start: 02/20/22 13:20 Freq: Status: Active Protocol: Document 02/20/22 13:20 CGR (Rec: 02/20/22 13:37 CGR [id number]) OT Gross Range of Motion Upper Extremity Range of Motion Assessment Right Impaired ROM Impairments R shld AROM impairments OT Strength Comments Strength Comments grossly 4-/5 throughout. Pt's R shld with restrictions at 0- 90 with pain in the anterior and lateral areas of the upper arm. OT- Coordination Assessment Upper Extremity Finger to Nose Test Within Functional Limits Finger Tapping Test Within Functional Limits OT-Muscle Tone Assessment Muscle Tone WNL Yes OT Sensation Assessment Edema Edema Absent M9 OT- IP Assessment and Plan Start: 02/20/22 13:20 Freq: Status: Active Protocol: Document 02/20/22 13:20 CGR (Rec: 02/20/22 13:37 CGR [id number]) OT Summary Assessment and Plan Potential Rehabilitation Potential Good Analytic Complexity at Evaluation High Summary OT Impairments Pain,Range of Motion,Strength, Balance,Functional Mobility, Grooming,Dressing,Toileting, Bathing,Toilet Transfers, Shower Transfers,Activity Tolerance Progress Towards Goals Slow Progress due to Medical Issues Assessment Summary Pt presents as a high complexity evaluation s/p admit for necrotic decubitus ulcers on her buttox, legs and feet. Pt with new dx of primary lateral sclerosis. Pt with progressively less mobility that left her sitting in her w/c without being able to get up. Pt is agreeable to therapy services and agreeable to multiple attempts . Pt would be an excellent rehab candidate. Recommend acute rehab services. Goals Grooming Goal Independent Dressing Goal Independent Toileting Goal Independent Bathing Goal Independent Toilet Transfer Goal Independent Shower Transfer Goal Independent Days to Meet Goals 30 Frequency of Treatment Frequency Of Treatment Once a Day Treatment Plan OT Treatment Plan ADL Training,Functional Mobility,Patient/Family Education,Discharge Planning Other Treatment Recommendations and Next ADls seated, educate further Treatment Focus on pressure relief Discharge Recommendations OT Discharge Recommendations Acute Rehab Transportation Needs at Discharge Wheelchair/Cabulance,Stretcher /Ambulance
[2022-02-20] MEDS: MEROPENEM 500 MG in SODIUM CHLORIDE 0.9% 100 ML 200 MG IV ×3 (12:36→22:50)
--- NOTE | 2022-02-20 12:44 | CM.DPC ---
Addendum entered by ERIKA Cary 02/20/22 15:29: ADD: [facility] declines due to acuity of wound care and their staffing. Addendum entered by ERIKA Cary 02/20/22 14:23: ADD: Per PT/OT today, they feel pt quite motivated and would benefit from Acute Inpt Rehab at d/c . SW called [facility] and briefly discussed pt and also wound care needs and they are willing to review and SW faxed clinicals. SW also called [facility] and left msg and faxed clinicals as well. BF Original Note: DCP Cont: Per MD, pt had I&D and currently no wound vac placed and regular dressing changes but getting stable for d/c once SNF acceptance secured. Per PT, recommending SNF at d/c for strengthening. Per Wound RN, took pictures and doing regular dressing changes and still some necrosis but edges are clear and will discuss with Surgeon the recommendation of wound vac. SW followed up on previously faxed SNF referrals: [facility] reviewing today and anticipate likely will not be able to meet her needs. [facility]- not anticipating any beds this week, but will know more on Sun. [facility]- currently full until possibly Sun or [facility]- decline due to wound care needs and their high acuity pts in their building already [facility]- reviewing, faxed updated clinicals to review [facility]- have beds and willing to review, faxed referral [facility] completed and COVID vax status printed from [facility] website. [facility] Friend kindly met bedside with pt and 2 visiting sons and discussed LTC planning and they are aware pt will likely need to move into [facility] in the near future as they will need to return to [place]. Pt states she was unaware that sitting in the same position could cause her wounds and was not aware of the need for better diet for wound healing per Pipe Cleaner discussion with pt. Pt very pleasant and cooperative and agreeable with SNF. Plan: SW to follow closely for possible need for additional SNF referrals and awaiting to determine if wound vac to be placed. ERIKA Cary
--- NOTE | 2022-02-20 13:51 | PC.RNWOUND ---
Wound vac placed to right gluteal wound, black foam, 125mmHg continuous suction as per orders. Patient tolerates cares well, pain 4/10, primary nurse to get pain med and warm blanket for patient. There is a 1 x 1.5cm area of non-blanchable redness to left buttock. Allevyn is placed for protection.
--- NOTE | 2022-02-20 14:39 | DIET.CONS ---
Dietary Consultation Note Admission Date: 02/17/2022 20:27 Assessment: 81y diabetic F admitted for multiple I&Ds of stage 4 pressure sores on buttocks, BL heels, and R thigh referred to nutrition for same. Pt lived in private home with spouse who last week from prostate cancer and Parkinson's Disease. Pts sons are visiting from [place] temporarily. Pt with new dx Lateral Sclerosis with decreased mobility over the past few months to now using jovon lift. Pt had been unaware of nutrition reccs for wounds as well as importance of offloading for pressure injury avoidance. Pt states she drinks one Premier Protein in the morning, has Meals on Wheels for lunch and sometimes a small snack for dinner. Pt had been focusing more on her spouse than her own health over the past few months and was able to discuss possible nutrition interventions as pt concerned she may go over her carb level at meals. Pt takes metformin 500mg daily. BGs 93-135 this hospitalization indicating excellent glycemic range to support healing. Ht: 177.8 cm Wt: 94.8 kg BMI: 29.9 ABW: 75kg Last BM: 02/17/22 (02/18/22 12:30) MNA: 10 Tomas Score: 11 Diet: 02/18/22 Dinner Carbohydrate Consistent Diet Diet Modifications: ensure max bid, mino applesauce tid, fruit cup x3 Carbohydrate level: Medium (3 CHO) Bedtime snack: Yes Nutrition Percent Meal Consumed 25% 02/20/22 14:02 Percent Meal Consumed 100% 02/20/22 08:43 Percent Meal Consumed 50% 02/19/22 17:53 Percent Meal Consumed 100% 02/19/22 12:37 Percent Meal Consumed 90% 02/19/22 08:54 Labs: RBC 2.58 X10^6/uL (4.0-5.2) L 02/19/22 06:30 Hgb 8.0 g/dL (12.0-16.0) L 02/19/22 06:30 Hct 23.5 % (36-46) L 02/19/22 06:30 Creatinine 0.77 mg/dL (0.52-1.04) 02/19/22 06:30 Iron 49 ug/dL (37-170) 02/18/22 06:10 % Saturation 24 % (15-50) 02/18/22 06:10 NT-Pro-B Natriuret Pep 227 pg/mL (<450) 02/17/22 19:32 Nutrition Diagnosis: inadequate nutrient needs for healing (protein, zinc, Vit A and C) r/t increased nutrient needs for healing aeb pt with five stage 4+ pressure injuries requiring I&D c wound vac placement, pt current PO intake meeting <75% of nutrient needs for healing, pt in acute grief from of spouse last week. Interventions: 1. While hospitalized in addition to regular CCD meal trays: Sending ONS Ensure Max bid to provide 50% protein, 60% Vit A, 100% Vit C, 50% zinc needs. Sending ONS Mino in apple sauce bid providin% pro and HMB to support protein synthesis. Sending fruit cup with meals. 2. Recc tight glycemic control and continued CCD. 3. Upon d/c recc pt continue 2 ONS Premier Protein Drinks daily x4w or until wounds all healed. 4. Educated pt on role of nutrition for wound healing, discussed food sources of each nutrient. Pt will have family make large batch beef and gage chili to freeze in individual portions, pt will drink 2 ONS daily, and will snack on high PRO items such as cheese, yogurt, cottage cheese. EER: 95-120g PRO (1.3-1.5g/kg ABW per wounds), 2250kcals (30kcal/kg ABW) Monitoring/Evaluations: POs, ONS tolerance Electronically Signed by: Malini Stafford 02/20/22 14:39 Clinical Dietitian [address] [address]
[2022-02-20] MEDS: INSULIN LISPRO 100 UNIT/ML 3ML VIAL SUBCUT (17:19)
[2022-02-20 19:45] VITALS: BP 105/43; PULSE 80; RESP 18; TEMP 36.6; O2SAT 97
--- NOTE | 2022-02-20 23:57 | PC.NURSE ---
Pt cooperative with staff and care. Both heels and RLE wound dressing changed wet to dry. Wound vac is continuous at 125mmHg. Pt denies pain except during wound changes, tramadol given before hand. Wound on L heel is darker and has necrotic tissue on upper lining of wound. Rn had to strongly encourage for shampoo cap for pt as she kept saying i can do it in the morning. Pt stated she could not feel during heel wound dressings. RN educated this is due to Dm and pt stated oh i did not know that. Pt seems uneducated about disease process and wounds. RN tried to educate as much as possible.
[2022-02-21] MEDS: PANTOPRAZOLE DR 20 MG TABLET PO (06:09)
[2022-02-21] MEDS: MEROPENEM 500 MG in SODIUM CHLORIDE 0.9% 100 ML 200 MG IV ×2 (06:09→12:25)
[2022-02-21] MEDS: LEVOTHYROXINE 112 MCG TABLET PO (06:09)
[2022-02-21 07:37] VITALS: BP 107/47; PULSE 78; RESP 16; TEMP 36.6; O2SAT 95
[2022-02-21] MEDS: ENOXAPARIN 40 MG/0.4 ML SYRINGE SUBCUT (08:53)
[2022-02-21] MEDS: ATORVASTATIN 20 MG TABLET 10 MG PO (08:53)
[2022-02-21] MEDS: DOCUSATE 100 MG CAPSULE PO ×2 (08:53→20:59)
[2022-02-21] MEDS: METFORMIN HCL 500 MG TABLET PO (08:53)
[2022-02-21] MEDS: SODIUM CHLORIDE 0.9% FLUSH 10 ML IV ×2 (08:56→20:59)
--- NOTE | 2022-02-21 09:30 | PC.RNWOUND ---
Left Heel Right Lateral Foot Patient denies need for pain medication prior to dressing changes, rates pain 2/10 if that to wounds. Dressings changed to Right Posterior Thigh and Right Lateral Knee wounds with no significant changes noted to wounds since yesterday's dressing change, other than drainage amount to removed dressings was small amount of serosanguineous drainage, still no non-malodorous. Right Lateral Foot wound appears darker in color than before, photo is taken today (see above photo), small amount of serosanguineous drainage to removed dressing, edges well-defined. Wound base 15% adherent yellow slough and 85% dark and hummel necrotic tissue. Left Heel wound also has a small amount of serosanguineous drainage to removed dressing, wound base still appears as 80% slough and necrotic tissue and 20% red granular tissue. Dorsalis pedis pulses easily palpable, posterior tibial pulses faintly palpable. Patient says, I never realized my wheelchair and foot pedals could cause so much damage. Pressure injury prevention techniques such as repositioning and weight-shifting again verbally discussed with patient, who verbalizes understanding, however some memory deficit is understood by wound nurse when patient asks during Right Posterior Thigh dressing change, Have you seen this wound before? Wound vac dressing is intact and vac appears to be functioning well.
--- NOTE | 2022-02-21 10:51 | PC.RNWOUND ---
Patient knitting in bed, weight shifts in bed with assist of wound care nurse. All wounds appear offloaded at this time with pillows and foam boots. Patient is handed protein shake from bedside and given verbal education on importance of increased protein for wound healing. Patient drinks protein drink and says, Oh, I'm so glad to know that. I like these drinks! Patient has cheery disposition and is interested and eager to learn, appears motivated to do all she can for wound healing.
--- NOTE | 2022-02-21 11:32 | OT.IP.TRT ---
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 Diagnosis Onset Date 02/17/22 M3 OT- IP Subjective and Pain Start: 02/20/22 13:20 Freq: Status: Active Protocol: Document 02/21/22 11:00 [facility] (Rec: 02/21/22 12:51 [facility] [id number]) OT- Subjective Occupational Therapy Visit Type Type Treatment Note Visit Start Time 11:00 Visit Stop Time 11:32 Total Visit Minutes 32 Occupational Therapy Visit Comments Patient Comments Pt agreed to get to the edge of the bed for oral care needs . Patient/Caregiver Goals Pt not sure what her plans are but does not want to burden her family and realizes not able to care for herself. OT Pain Assessment Pain When Pain Assessed At Rest Pain Present Pain Present Pain Reported Location right buttock Intensity 5 Scale Used Numeric (0 - 10) M4 OT- IP ADL's Start: 02/20/22 13:20 Freq: Status: Active Protocol: Document 02/21/22 11:00 [facility] (Rec: 02/21/22 12:51 [facility] [id number]) OT [id number] Comments OT Self-Feeding Comments Not at meal time. OT ADL-Grooming General Evaluation Grooming Ability Standby Assistance Areas Needing Assistance Retrieving/Set-up of Grooming Items Comments OT Grooming Comments Pt able to do after seat up and getting pt to the edge of the bed. OT ADL-Oral Care General Eval Oral Care Ability Standby Assistance Areas of Assistance Retrieving/Set-Up of Items OT ADL-Dressing General Eval Lower Body Dressing Ability Total Assistance Areas Needing Assistance Socks Comments OT Dressing Comments Pt total assist for all LB dressing needs. Pt having difficulty to move her RLE at this time. OT ADL-Toileting General Evaluation Toileting Ability Total Assistance Comments OT Toileting Comments Pt with lee. OT ADL-Bathing Comments OT Bathing Comments Sponge bath more appropriate at this time. M5 OT- IP IADL's Start: 02/20/22 13:20 Freq: Status: Active Protocol: Document 02/20/22 13:20 CGR (Rec: 02/20/22 13:37 CGR [id number]) OT-Instrumental Activities of Daily Living Deficits IADL Deficits Identified No Deficits Home Safety Awareness Awareness of Need for Assistance at Home Good Awareness Ability to Problem Solve Emergency Able to Problem Solve Situations Medication Management Medication Management No Deficits Identified Money Management Money Management No Deficits Identified Meal Preparation Meal Preparation Comments concerns regarding pt's ability to perform Food And Beverage Attendant Food And Beverage Attendant Comments concerns regarding pt's ability to perform Driving Driving Comments pt does not drive. M6 OT- IP Functional Cognition Start: 02/20/22 13:20 Freq: Status: Active Protocol: Document 02/21/22 11:00 [facility] (Rec: 02/21/22 12:51 [facility] [id number]) Cognitive Factors Limiting Selfcare Function Cognitive Ability Level of Alertness Alert Patient Orientation Name,Age,Birthday,Month,Date, Year,Day of Week,Place, Situation Attention Span Ability Capable of Focused Attention, Capable of Sustained Attention Cognitive Comments Cognitive Assessment Comments Pt is very pleasant and cooperative and able to follow commands well. M7 OT- IP Mobility and Balance Start: 02/20/22 13:20 Freq: Status: Active Protocol: Document 02/21/22 11:00 [facility] (Rec: 02/21/22 12:51 [facility] [id number]) OT- Bed Mobility Assessment Rolling Type of Rolling Log Rolling Level of Assistance Moderate Assistance,Maximum Assistance,2 Person Assistance ,Bedrails Supine to Sit Supine to Sit Assist Moderate Assistance,Maximum Assistance,2 Person Assistance Sit to Supine Sit to Supine Assist Maximum Assistance,1 Person Assistance Scooting Scooting to Edge of Bed Maximum Assistance,2 Person Assistance OT-Transfer Assessment Comments Mobility Comments Pt needing MAXA x2 for legs management and to get her trunk upright and then back into bed MAXA x1 to get her legs back in. Pt having to use one arm to help get her left LE to the edge of the bed and two hand with additional assist johanna the therapist for her RLE. Pt getting tired and wound vac needing to be readjusted and assist pt back to bed. OT- Balance Assessment Sitting Balance and Reactions Static Sitting Balance Ability Normal Dynamic Sitting Balance Ability Good M8 OT- IP Objective Assessments Start: 02/20/22 13:20 Freq: Status: Active Protocol: Document 02/20/22 13:20 CGR (Rec: 02/20/22 13:37 CGR [id number]) OT Gross Range of Motion Upper Extremity Range of Motion Assessment Right Impaired ROM Impairments R shld AROM impairments OT Strength Comments Strength Comments grossly 4-/5 throughout. Pt's R shld with restrictions at 0- 90 with pain in the anterior and lateral areas of the upper arm. OT- Coordination Assessment Upper Extremity Finger to Nose Test Within Functional Limits Finger Tapping Test Within Functional Limits OT-Muscle Tone Assessment Muscle Tone WNL Yes OT Sensation Assessment Edema Edema Absent M9 OT- IP Assessment and Plan Start: 02/20/22 13:20 Freq: Status: Active Protocol: Document 02/21/22 11:00 [facility] (Rec: 02/21/22 12:51 [facility] [id number]) OT Summary Assessment and Plan Potential Rehabilitation Potential Fair Analytic Complexity at Evaluation High Summary OT Impairments Pain,Range of Motion,Strength, Balance,Functional Mobility, Grooming,Dressing,Toileting, Bathing,Toilet Transfers, Shower Transfers,Activity Tolerance Progress Towards Goals Slow Progress due to Pain,Slow Progress due to Medical Issues,Slow Progress due to Activity Tolerance Assessment Summary Pt is very cooperative and feels that she is not able to care fore herself at this time and does not want to burden her family. Pt states has been wc bound for 10 years and uses the jovon on her own to transfer to her wc and then able to get herself over to the toilet with handles while using her legs and grab bars to assist, but unable to do now as her RLE not able to move as well at this time. Goals Grooming Goal Independent Dressing Goal Moderate Assistance Toileting Goal Moderate Assistance Bathing Goal Moderate Assistance Toilet Transfer Goal Moderate Assistance Shower Transfer Goal Moderate Assistance Days to Meet Goals 30 Frequency of Treatment Frequency Of Treatment Once a Day Treatment Plan OT Treatment Plan ADL Training,Functional Mobility,Patient/Family Education,Discharge Planning Other Treatment Recommendations and Next ADls seated, educate further Treatment Focus on pressure relief Discharge Recommendations OT Discharge Recommendations SNF Rehab,LTAC Transportation Needs at Discharge Wheelchair/Cabulance,Stretcher /Ambulance
--- NOTE | 2022-02-21 11:32 | PT.IPTN ---
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 (02/17/22) Surgery Performed Operation Date: 02/18/22 12:30 Actual Procedures p Incision and Drainage Wound/General decubitus ulcers posterior right gluteus, right posterior mid thigh, bilateral foot bottom(Right) - Jorge Luis Flores MD Physical Therapy Treatment Note M2 PT-IP Current Condition Start: 02/19/22 08:36 Freq: NEEDED Status: Active Protocol: Document 02/19/22 11:25 AW (Rec: 02/19/22 12:10 AW [id number]) Physical Therapy Current Condition Current Condition Evaluation Date 02/19/22 Treatment Diagnosis stage 4 sacral PI; BLE wounds; primary lateral sclerosis; impaired mobility Onset Date 02/04/22 M3 PT-IP Subjective Start: 02/19/22 08:36 Freq: NEEDED Status: Active Protocol: Document 02/21/22 11:00 [place] (Rec: 02/21/22 12:54 [place] [id number]) Subjective Physical Therapy Visit Type Type Treatment Note Visit Start Time 11:00 Visit Stop Time 11:32 Total Visit Minutes 32 Notes Co-tx with OT due to pt's complex medical needs Physical Therapy Visit Comments Patient Comments Pt is willing to participate with PT. M4 PT-IP Mobility and Gait Start: 02/19/22 08:36 Freq: NEEDED Status: Active Protocol: Document 02/21/22 11:00 [facility] (Rec: 02/21/22 12:54 [facility] [id number]) PT-Bed Mobility Assessment Rolling Type of Rolling Roll to Right,Roll to Left Level of Assist Moderate Assistance,Maximal Assistance,2 Person Assistance Supine to Sit Supine to Sit Moderate Assistance,Maximum Assistance,2 Person Assistance ,Head of Bed Elevated,Bedrails Sit to Supine Sit to Supine Maximum Assistance,1 Person Assistance Scooting Scooting to Edge of Bed Maximum Assistance PT-Transfer Assessment Comments Mobility Comments Pt in bed upon arrival and agreeable to working w/ therapies. She required Mod/ Max A x2 for sup<>sit and scooting EOB, she attempted to use BUE to self assist LE to EOB but unsuccessful. When sitting, she is able to maintain seated balance. She performed ankle pumps, LAQs, and glute sets but unable to fully perform w/ RLE. Pt required Max A for sit<>Sup and rolling for repositioning and linen change. Pt left in bed w/ all needs in reach. Gait Assessment Comments Gait Comments Unable at this time. Stair Climbing Assessment Comments Stair Climbing Comments No stairs at home. PT-Balance Assessment Sitting Balance and Reactions Static Sitting Balance Ability Good Dynamic Sitting Balance Ability Fair M5 PT-IP Objective Assessments Start: 02/19/22 08:36 Freq: NEEDED Status: Active Protocol: Document 02/19/22 11:25 AW (Rec: 02/19/22 12:10 AW [id number]) Orientation Orientation/Cognition Level of Alertness Alert Orientation Name,Day of Week,Place, Situation Language Function Ability No Deficits Noted Safety Awareness Understands Safety Issues Memory Description No Deficits Noted Gross Range of Motion Upper Extremity ROM Assessment Right Impaired Impairments RUE lacks elevation. Pt compensates with shoulder shrug but is unable to get her arm behind her head/body. Lower Extremity ROM Assessment Bilaterally Impaired Impairments Lacking dorsiflexion bilaterally with right more severely affected. Strength Lower Extremity Strength Assessment Bilaterally Impaired Hip L 3-/5; R 2-/5 Knee L 3+/5; R 2-/5 Ankle L 3+/5; R 2-/5 Sensation Assessment Sensation Gross Sensation Right LE Impaired Light Touch Impaired Proprioception (Position) Impaired Comments Sensation Comments Dull light touch sensation RLE Muscle Tone Muscle Tone Location Right Lower Extremity Type of Tone Hypotonicity Severity of Tone Severe M6 PT-IP Treatment Start: 02/19/22 08:36 Freq: NEEDED Status: Active Protocol: Document 02/21/22 11:00 [place] (Rec: 02/21/22 12:54 KS [id number]) Physical Therapy Treatment Exercises Exercises Ankle Pumps,Gluteal Sets Education Education Provided Safety Other Treatments Other Treatment Performed LAQs. M7 PT-IP Assessment and Plan Start: 02/19/22 08:36 Freq: NEEDED Status: Active Protocol: Document 02/21/22 11:00 [facility] (Rec: 02/21/22 12:54 KS [id number]) PT Summary Assessment and Plan Potential Rehabilitation Potential Fair Summary Impairments Pain,ROM,Strength,Balance, Sensation,Tone,Bed Mobility, Transfers,Gait,Activity Tolerance Progress Towards Goals Slow Progress due to Medical Issues,Slow Progress due to Activity Tolerance,Slow Progress - Other Assessment Summary Pt still requiring Mod/Max A x2 for bed mobility and is unable to reposition herself in bed and unable to stand for transfers. She has increased weakness in RLE. Pt is not safe to go home - her son is only visiting and she has no other help. She will require SNF to improve mobility and ultimately exterminator helper termite care. Goals Bed Mobility Goal Minimal Assistance Transfer Goal Moderate Assistance,Front Wheeled Walker Gait Goal Moderate Assistance,Front Wheel Walker Gait Distance 10 Days to Meet Goals 10 Frequency of Treatment Frequency Of Treatment Once a Day Treatment Plan Physical Therapy Treatment Plan Bed Mobility Training,Transfer Training,Gait Training, Therapeutic Exercise,Balance Retraining,Post Op Education, Discharge Planning,Hot or Cold Pack,Neuromuscular Re-ed Other Recommendations and Next Treatment bed mobility; ther ex for LE Focus strength; pressure relief Precautions Other Precautions sacral and BLE stage IV pressure injuries - avoid excessive shear Recommendations To Nursing Amount of Assist Needed Mechanical Lift Discharge Recommendations PT Discharge Recommendations SNF Rehab,LTAC Transportation Needs at Discharge Wheelchair/Cabulance,Stretcher /Ambulance
--- NOTE | 2022-02-21 12:06 | P.PN_ITS ---
Subjective Subjective Date Patient Seen: 02/21/22 Time Patient Seen: 09:00 Interval history: Patient has some mild back pain, but otherwise feels well and has no complaints. Currently waiting on SNF placement. Exam Vital Signs (past 8 hours): - 02/21/22 07:37 Temperature 97.8 F Pulse Rate 78 Respiratory Rate 16 Blood Pressure 107/47 L Pulse Oximetry 95 Oxygen Flow Rate 0 Oxygen Delivery Method Room Air Oxygen Flow Rate 0 Narrative Exam Narrative: GEN: Alert and oriented x 3, NAD HEENT:NC, Face symmetric CHEST: Respiratory excursions symmetric, CTAB CV: RRR, no M/R/G ABD: Soft, NT/ND, BT present in all 4 quadrants, no organomegaly or masses EXTR: warm, well perfused, no C/C/E SKIN: warm and dry, no rash; right buttock ulcer with wound vac in placed, heels wrapped and have pressure boots in place NEURO: Alert and oriented x 3, nonfocal Objective Labs Result Diagrams: 02/19/22 06:30 02/19/22 06:30 [facility] Medical History Diabetes Hypertension Hypothyroid Social History household members: family and none Smoking Status: Former smoker Assessment & Plan Assessment & Plan narrative: 1. Primary lateral sclerosis Patient has had progressive difficulties with mobility.? She has been wheelchair bound.? Recently, her on hospice.? Son lives in [place].? She will likely require placement at discharge.? PT evaluation done today with recommendation for rehab. OT agrees with SNF. 2. Necrotic decubitus ulcers, POD #1 from surgical debridement Pt was taken to the OR yesterday by gen surgery and debridement of RLE/feet/buttock decubitus ulcers was accomplished. Continue local wound care with wound vac. Wound cultures growing ESBL so Zosyn changed to meropenem IV. 3. Diabetes mellitus type 2 Remains on metformin.? Continue controlled carb diet. 4. Hypertension Continue lisinopril.? Blood pressure mildly hypotensive. Will add holding parameters. 5. Hyperlipidemia Continue statin therapy.? 6. Normocytic anemia Iron studies were performed and consistent with anemia of chronic inflammatory disease. Hemoglobin is down from 9 0.3-8.0 today. Likely she has had some acute blood loss secondary to the surgical debridements performed yesterday in the setting of her chronic normocytic anemia of inflammatory disease 7. Azotemia BUN was 31 on admission, it was improved yesterday down to 23.? Today it has normalized. Code status DNR Prophylaxis Lovenox Disposition Pending SNF Time Spent With Patient Critical Care time: I spent a total of [] minutes of critical care time on this patient's care toda y; this time is exclusive of procedural time. Quality VTE Deep Vein Thrombosis/Pulmonary Embolism Present on Admission: No
[2022-02-21] MEDS: INSULIN LISPRO 100 UNIT/ML 3ML VIAL SUBCUT ×2 (12:25→17:14)
[2022-02-21] MEDS: SODIUM CHLORIDE 0.9% 250 ML 21 ML IV (12:31)
--- NOTE | 2022-02-21 12:59 | CM.DPNOTE ---
Faxed referral to [facility] and [facility] per Wandy. Ricarda Mckeon, [place] [facility].
--- NOTE | 2022-02-21 14:20 | CM.DPC ---
DCP/continued: CM team continue to look for SNF/acute rehabilitation facilities. QUANTITY SURVEYOR spoke with both [facility] and [facility] both don't feel patient appropriate candidate. QUANTITY SURVEYOR asked TOBIAS/Ricarda to fax to [facility] in [place] today. In addition asked that we check on swing beds at [facility] and [facility]. P: Patient will be difficult placement given her wound care needs and inability to care for herself. Patient does have 2 sons that live in the state. It will be anticipated that care conference will need to be done explaining to patient and family that senior living placement will be out of pocket and difficult to find. Other options include 24/7 nursing care at home. Katelin returned call from [facility] and they are reviewing for potential swing bed placement. RN/Ronna discussing with Katelin at [facility]. P: Pending. ANDREINA
--- NOTE | 2022-02-21 14:55 | CM.DPC ---
DCP Cont: DCP spoke with Mimi @ [facility] Swing Bed. DCP provided her with brief background regarding pt case. Karen to speak with wound care nurses and determine if they can meet pt needs. DCP to continue to follow case. Ronna Thompson RN/DCP
[2022-02-21] MEDS: ERTAPENEM 1 GM in SODIUM CHLORIDE 0.9% 100 ML IV (17:15)
[2022-02-21 20:00] VITALS: BP 125/62; PULSE 85; RESP 19; TEMP 36.7; O2SAT 96
--- NOTE | 2022-02-21 23:49 | PC.NURSE ---
Patient is alert and oriented. Breath sounds CTA with RA sat of 96%. HRR. Denies nausea. BT present and abdomen is soft; has not had a BM since 02/17; is receiving Colace BID so will need to have MD order more bowel meds. Indwelling catheter (which she had on admission but was changed 1st day in hospital) is patent. Can move slightly in bed and assists in repositioning but staff is to turn her q1h although refuses to lie on right side so position change is minimal each time; did agree to allow staff to use Judit tilt function tonight which she adamantly refused on Sunday night. Wound vac to right buttock pressure ulcer is intact and set at 125mmHg. Wet to dry dressings on lateral right leg and bilateral feet changed with serosanguinous drainage noted on each. Remains on contact isolation as had ESBL in buttock wound. Denies pain. Fall risk score is high and bed alarm is activated.
[2022-02-22] MEDS: PANTOPRAZOLE DR 20 MG TABLET PO (06:01)
[2022-02-22] MEDS: LEVOTHYROXINE 112 MCG TABLET PO (06:01)
--- NOTE | 2022-02-22 06:59 | P.PN_ITS ---
Subjective Subjective Date Patient Seen: 02/22/22 Time Patient Seen: 11:00 Interval history: Patient had some mild pain with wound vac change on bottom today. Otherwise pain has been well managed. No other complaints. Exam Vital Signs (past 8 hours): - 02/21/22 23:00 Oxygen Delivery Method Room Air Oxygen Delivery Method Room Air Oxygen Flow Rate 0 Narrative Exam Narrative: GEN: Alert and oriented x 3, NAD HEENT:NC, Face symmetric CHEST: Respiratory excursions symmetric, CTAB CV: RRR, no M/R/G ABD: Soft, NT/ND, BT present in all 4 quadrants, no organomegaly or masses EXTR: warm, well perfused, no C/C/E SKIN: warm and dry, no rash; right buttock ulcer with wound vac in placed, heels wrapped and have pressure boots in place NEURO: Alert and oriented x 3, nonfocal Objective Labs Result Diagrams: 02/19/22 06:30 02/19/22 06:30 [facility] Medical History Diabetes Hypertension Hypothyroid Social History household members: family and none Smoking Status: Former smoker Assessment & Plan Assessment & Plan narrative: 1. Primary lateral sclerosis Patient has had progressive difficulties with mobility.? She has been wheelchair bound.? Recently, her on hospice.? Son lives in [place].? She will likely require placement at discharge.? PT evaluation done today with recommendation for rehab. OT agrees with SNF. 2. Necrotic decubitus ulcers, POD #1 from surgical debridement Pt was taken to the OR yesterday by gen surgery and debridement of RLE/feet/buttock decubitus ulcers was accomplished. Continue local wound care with wound vac. Wound cultures growing ESBL so Zosyn changed to ertapenem IV. Will finish 5 day course to be safe. 3. Diabetes mellitus type 2 Remains on metformin.? Continue controlled carb diet. 4. Hypertension Continue lisinopril.? Blood pressure mildly hypotensive. Will add holding parameters. 5. Hyperlipidemia Continue statin therapy.? 6. Normocytic anemia Iron studies were performed and consistent with anemia of chronic inflammatory disease. Hemoglobin is down from 9 0.3-8.0 today. Likely she has had some acute blood loss secondary to the surgical debridements performed yesterday in the setting of her chronic normocytic anemia of inflammatory disease 7. Azotemia BUN was 31 on admission, it was improved yesterday down to 23.? Today it has normalized. Code status DNR Prophylaxis Lovenox Disposition Pending SNF Time Spent With Patient Critical Care time: I spent a total of [] minutes of critical care time on this patient's care today; this time is exclusive of procedural time. Quality VTE Deep Vein Thrombosis/Pulmonary Embolism Present on Admission: No
[2022-02-22 07:45] VITALS: BP 125/67; PULSE 77; RESP 16; TEMP 36.9; O2SAT 95
[2022-02-22 08:20] VITALS: BP 125/62; PULSE 85
[2022-02-22] MEDS: ENOXAPARIN 40 MG/0.4 ML SYRINGE SUBCUT (08:20)
[2022-02-22] MEDS: lisinopriL 20 MG TABLET 40 MG PO (08:20)
[2022-02-22] MEDS: DOCUSATE 100 MG CAPSULE PO ×2 (08:21→21:02)
[2022-02-22] MEDS: METFORMIN HCL 500 MG TABLET PO (08:21)
[2022-02-22] MEDS: ATORVASTATIN 20 MG TABLET 10 MG PO (08:21)
[2022-02-22] MEDS: SODIUM CHLORIDE 0.9% FLUSH 10 ML IV ×2 (08:24→21:02)
--- NOTE | 2022-02-22 09:15 | PC.RNWOUND ---
Right Buttock Patient resting in bed, denies need for pain medication, says pain 2/10 right now to my middle lower back, says it hasn't been bad at all. Dressings changed to right lower extremity wounds and bilateral foot wounds with a small mount of serosanguineous drainage noted to removed dressings, no malodor, no changes in wound appearance since 02/21 dressing change. Patient turns to left side with assist of wound nurse and CREATIVE CONSULTANT, Right Buttock wound vac dressing is gently removed, there is 100cc serosanguineous drainage to vac canister. Right Buttock pressure injury measures 13 x 9 x 2.5cm with 1.5cm undermining noted from 11 o'clock to 2 o'clock (patient in slightly different angle this dressing change affecting position of gluteal skin which affects measurements). Wound base 65% red granular tissue 35% yellow and hummel slough/necrotic tissue, wound edges are well-defined, wound appears less pale than 10/3. Wound is gently cleansed/irrigated with saline and dressed to orders with wound vac dressing. Patient is repositioned with weight shifted to left side, heels floated with foam boots on, pillows for positioning, rates pain 6/10 and is given IV pain medication by primary orienting nurse who also assisted with dressing changes. Patient in contact isolation for ESBL in buttock wound, IV antibiotics (ertapenem), Q1hr repositioning with heels floated off bed surface at all times.
[2022-02-22] MEDS: HYDROMORPHONE 0.5 MG INJ IV (09:57)
--- NOTE | 2022-02-22 10:51 | DIET.CONS2 ---
Dietary Inpatient Consultation Note Admission Date: 02/17/2022 20:27 Pt compliant with nutrition plan of care for wound support. Pt consuming 50-75% of meal trays with ONS Mino applesauce and Ensure Max bid which pt enjoys. Nutrition Diagnosis: inadequate nutrient needs for healing (protein, zinc, Vit A and C) r/t increased nutrient needs for healing aeb pt with five stage 4+ pressure injuries requiring I&D c wound vac placement, pt current PO intake meeting <75% of nutrient needs for healing, pt in acute grief from of spouse last week. Diet: 02/18/22 Dinner Carbohydrate Consistent Diet Diet Modifications: ensure max bid, mino applesauce tid, fruit cup x3 Carbohydrate level: Medium (3 CHO) Bedtime snack: Yes Nutrition Percent Meal Consumed 50% 02/22/22 08:40 Percent Meal Consumed 75% 02/21/22 17:53 Percent Meal Consumed 25% 02/20/22 14:02 Plan to continue nutrition support plan while hospitalized. Pt plans to continue ONS at home. Electronically Signed by: Malini Stafford 02/22/22 10:51 Clinical Dietitian [address] [address]
--- NOTE | 2022-02-22 11:15 | OT.IP.TRT ---
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 (02/17/22) Surgery Performed Operation Date: 02/18/22 12:30 Actual Procedures p Incision and Drainage Wound/General decubitus ulcers posterior right gluteus, right posterior mid thigh, bilateral foot bottom(Right) - Jorge Luis Flores MD Occupational Therapy Treatment Note M2 OT-IP Current Condition Start: 02/20/22 13:20 Freq: Status: Active Protocol: Document 02/20/22 13:20 CGR (Rec: 02/20/22 13:37 CGR [id number]) Occupational Therapy Current Condition Current Condition Evaluation Date 02/20/22 Treatment Diagnosis primary lateral sclerosis, necrotic decubitus ulcers, stage 4 wounds. Diagnosis Onset Date 02/17/22 M3 OT- IP Subjective and Pain Start: 02/20/22 13:20 Freq: Status: Active Protocol: Document 02/22/22 11:15 [facility] (Rec: 02/22/22 12:52 [facility] [id number]) OT- Subjective Occupational Therapy Visit Type Type Treatment Note Visit Start Time 10:58 Visit Stop Time 11:15 Total Visit Minutes 17 Occupational Therapy Visit Comments Patient Comments Able to talk to pt and her son to clarify prior level of care and what the plan is for after hospital stay. Patient/Caregiver Goals Pt not sure what her plans are but does not want to burden her family and realizes not able to care for herself. OT Pain Assessment Pain When Pain Assessed At Rest Pain Present Pain Present Denied Pain M4 OT- IP ADL's Start: 02/20/22 13:20 Freq: Status: Active Protocol: Document 02/21/22 11:00 [facility] (Rec: 02/21/22 12:51 [facility] [id number]) OT KLM-Boms-Lmahptu Comments OT Self-Feeding Comments Not at meal time. OT ADL-Grooming General Evaluation Grooming Ability Standby Assistance Areas Needing Assistance Retrieving/Set-up of Grooming Items Comments OT Grooming Comments Pt able to do after seat up and getting pt to the edge of the bed. OT ADL-Oral Care General Eval Oral Care Ability Standby Assistance Areas of Assistance Retrieving/Set-Up of Items OT ADL-Dressing General Eval Lower Body Dressing Ability Total Assistance Areas Needing Assistance Socks Comments OT Dressing Comments Pt total assist for all LB dressing needs. Pt having difficulty to move her RLE at this time. OT ADL-Toileting General Evaluation Toileting Ability Total Assistance Comments OT Toileting Comments Pt with lee. OT ADL-Bathing Comments OT Bathing Comments Sponge bath more appropriate at this time. M5 OT- IP IADL's Start: 02/20/22 13:20 Freq: Status: Active Protocol: Document 02/20/22 13:20 CGR (Rec: 02/20/22 13:37 CGR [id number]) OT-Instrumental Activities of Daily Living Deficits IADL Deficits Identified No Deficits Home Safety Awareness Awareness of Need for Assistance at Home Good Awareness Ability to Problem Solve Emergency Able to Problem Solve Situations Medication Management Medication Management No Deficits Identified Money Management Money Management No Deficits Identified Meal Preparation Meal Preparation Comments concerns regarding pt's ability to perform Photography Instructor Photography Instructor Comments concerns regarding pt's ability to perform Driving Driving Comments pt does not drive. M6 OT- IP Functional Cognition Start: 02/20/22 13:20 Freq: Status: Active Protocol: Document 02/21/22 11:00 [facility] (Rec: 02/21/22 12:51 [facility] [id number]) Cognitive Factors Limiting Selfcare Function Cognitive Ability Level of Alertness Alert Patient Orientation Name,Age,Birthday,Month,Date, Year,Day of Week,Place, Situation Attention Span Ability Capable of Focused Attention, Capable of Sustained Attention Cognitive Comments Cognitive Assessment Comments Pt is very pleasant and cooperative and able to follow commands well. M8 OT- IP Objective Assessments Start: 02/20/22 13:20 Freq: Status: Active Protocol: Document 02/20/22 13:20 CGR (Rec: 02/20/22 13:37 R [id number]) OT Gross Range of Motion Upper Extremity Range of Motion Assessment Right Impaired ROM Impairments R shld AROM impairments OT Strength Comments Strength Comments grossly 4-/5 throughout. Pt's R shld with restrictions at 0- 90 with pain in the anterior and lateral areas of the upper arm. OT- Coordination Assessment Upper Extremity Finger to Nose Test Within Functional Limits Finger Tapping Test Within Functional Limits OT-Muscle Tone Assessment Muscle Tone WNL Yes OT Sensation Assessment Edema Edema Absent M9 OT- IP Assessment and Plan Start: 02/20/22 13:20 Freq: Status: Active Protocol: Document 02/22/22 11:15 [facility] (Rec: 02/22/22 12:52 [facility] [id number]) OT Summary Assessment and Plan Potential Rehabilitation Potential Fair Analytic Complexity at Evaluation High Summary OT Impairments Pain,Range of Motion,Strength, Balance,Functional Mobility, Grooming,Dressing,Toileting, Bathing,Toilet Transfers, Shower Transfers,Activity Tolerance Progress Towards Goals Slow Progress due to Medical Issues,Slow Progress due to Activity Tolerance Assessment Summary Able to clarify with pt and her son that pt for years has not used the toilet and has been using a catheter and cleans her self on the bed after a bowel movement. Pt and son realize pt is not able to care for herself but still hoping she is able to go to skilled rehab to get stronger. Otherwise pt would benefit from local company intermodal truck driver care at this time. Goals Grooming Goal Independent OT-Other Goals Pt do be independent for BUE exercises in the bed. Days to Meet Goals 5 Frequency of Treatment Frequency Of Treatment Once a Day Treatment Plan OT Treatment Plan ADL Training,Functional Mobility,Patient/Family Education,Discharge Planning Discharge Recommendations OT Discharge Recommendations SNF Rehab,LTAC Transportation Needs at Discharge Stretcher/Ambulance
--- NOTE | 2022-02-22 11:15 | PT.IPTN ---
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 (02/17/22) Surgery Performed Operation Date: 02/18/22 12:30 Actual Procedures p Incision and Drainage Wound/General decubitus ulcers posterior right gluteus, right posterior mid thigh, bilateral foot bottom(Right) - Jorge Luis Flores MD Physical Therapy Treatment Note M2 PT-IP Current Condition Start: 02/19/22 08:36 Freq: NEEDED Status: Active Protocol: Document 02/19/22 11:25 AW (Rec: 02/19/22 12:10 AW [id number]) Physical Therapy Current Condition Current Condition Evaluation Date 02/19/22 Treatment Diagnosis stage 4 sacral PI; BLE wounds; primary lateral sclerosis; impaired mobility Onset Date 02/04/22 M3 PT-IP Subjective Start: 02/19/22 08:36 Freq: NEEDED Status: Active Protocol: Document 02/22/22 11:00 [place] (Rec: 02/22/22 12:20 KS [id number]) Subjective Physical Therapy Visit Type Type Treatment Note Visit Start Time 11:00 Visit Stop Time 11:15 Total Visit Minutes 15 Notes Son present Therapy Pain Assessment Pain When Pain Assessed At Rest Pain Present Pain Present Denied Pain M4 PT-IP Mobility and Gait Start: 02/19/22 08:36 Freq: NEEDED Status: Active Protocol: Document 02/22/22 11:00 [place] (Rec: 02/22/22 12:20 [place] [id number]) PT-Transfer Assessment Comments Mobility Comments Had discussion w/ pt and her son about goals and safety this AM. Pt and son both realize pt is not safe to return home due to pt lives alone and does not have adequate care. Provided education on importance and safety of mobility. Pt wanting to have further discussion w/ son regarding her goals for PT. Gait Assessment Comments Gait Comments Unable at this time. Stair Climbing Assessment Comments Stair Climbing Comments No stairs at home. M5 PT-IP Objective Assessments Start: 02/19/22 08:36 Freq: NEEDED Status: Active Protocol: Document 02/19/22 11:25 AW (Rec: 02/19/22 12:10 AW [id number]) Orientation Orientation/Cognition Level of Alertness Alert Orientation Name,Day of Week,Place, Situation Language Function Ability No Deficits Noted Safety Awareness Understands Safety Issues Memory Description No Deficits Noted Gross Range of Motion Upper Extremity ROM Assessment Right Impaired Impairments RUE lacks elevation. Pt compensates with shoulder shrug but is unable to get her arm behind her head/body. Lower Extremity ROM Assessment Bilaterally Impaired Impairments Lacking dorsiflexion bilaterally with right more severely affected. Strength Lower Extremity Strength Assessment Bilaterally Impaired Hip L 3-/5; R 2-/5 Knee L 3+/5; R 2-/5 Ankle L 3+/5; R 2-/5 Sensation Assessment Sensation Gross Sensation Right LE Impaired Light Touch Impaired Proprioception (Position) Impaired Comments Sensation Comments Dull light touch sensation RLE Muscle Tone Muscle Tone Location Right Lower Extremity Type of Tone Hypotonicity Severity of Tone Severe M6 PT-IP Treatment Start: 02/19/22 08:36 Freq: NEEDED Status: Active Protocol: Document 02/22/22 11:00 [place] (Rec: 02/22/22 12:20 KS [id number]) Physical Therapy Treatment Education Education Provided Safety Other Treatments Other Treatment Performed Had discussion w/ pt and her son about goals and safety this AM. Pt and son both realize pt is not safe to return home due to pt lives alone and does not have adequate care. Provided education on importance and safety of mobility. Pt very limited in LE, barely able to move LLE and relying on BUE to self assist LE but unable to fully complete. Only able to move her toes on RLE. Pt wanting to have further discussion w/ son regarding her goals for PT. She has been using a w/c for many years and has been unable to transfer to toilet at home. M7 PT-IP Assessment and Plan Start: 02/19/22 08:36 Freq: NEEDED Status: Active Protocol: Document 02/22/22 11:00 [place] (Rec: 02/22/22 12:20 [place] [id number]) PT Summary Assessment and Plan Potential Rehabilitation Potential Fair Summary Impairments Pain,ROM,Strength,Balance, Sensation,Tone,Bed Mobility, Transfers,Gait,Activity Tolerance Progress Towards Goals Slow Progress due to Medical Issues,Slow Progress due to Activity Tolerance,Slow Progress - Other Assessment Summary Provided pt and family education today regarding mobility, strengthening, and planning for pts needs upon d/ c. Pt and son currently aware pt unsafe to return home and are working on aircraft delivery checker plan. Pt has been using w/c for years and for months has not been able to transfer herself to toilet and now has wounds. Pt and son wanting to discuss goals for mobility and working w/ PT today, will check back on pt tomorrow for updates and to assess mobility . Goals Bed Mobility Goal Minimal Assistance Transfer Goal Moderate Assistance,Front Wheeled Walker Gait Goal Moderate Assistance,Front Wheel Walker Gait Distance 10 Days to Meet Goals 10 Frequency of Treatment Frequency Of Treatment Once a Day Treatment Plan Physical Therapy Treatment Plan Bed Mobility Training,Transfer Training,Gait Training, Therapeutic Exercise,Balance Retraining,Post Op Education, Discharge Planning,Hot or Cold Pack,Neuromuscular Re-ed Other Recommendations and Next Treatment bed mobility; ther ex for LE Focus strength; pressure relief, UE strengthening to assist w/ LE self assist and transfers and pressure relief of bottom. Precautions Other Precautions sacral and BLE stage IV pressure injuries - avoid excessive shear Recommendations To Nursing Amount of Assist Needed Mechanical Lift Discharge Recommendations PT Discharge Recommendations SNF Rehab,LTAC Transportation Needs at Discharge Wheelchair/Cabulance,Stretcher /Ambulance
[2022-02-22] MEDS: INSULIN LISPRO 100 UNIT/ML 3ML VIAL SUBCUT ×2 (11:40→16:50)
--- NOTE | 2022-02-22 12:56 | CM.DPC ---
Addendum entered by ERIKA Cary 02/22/22 15:07: ADD: [facility] also anticipates beds available tomorrow Th and Sun and willing to review, faxed clinicals. BF Addendum entered by ERIKA Cary 02/22/22 13:25: ADD: Update on previously faxed facilities: [facility]- not appropriate [facility]- not appropriate [facility]- no beds available [facility]- too high acuity for their staffing ratio [facility]- declines [facility]- declines [facility]- no beds, possibly tomorrow, have referral already, call tomorrow [facility]- no beds for a few days [facility]- left mtg [facility]- left mtg [facility]- [facility]- reviewing for possible acceptance Left msg for [facility] to determine if any way for pt to meet their criteria although has not been ICU status. BF Original Note: DCP Cont: Per MD, pt is now medically stable to d/c to lower level of care once bed available. ROBINSON spoke to Wound RN Antonieta who states she just changed pt's wound vac which pt has on her right buttock and Wound RN confirms that pt only has the one wound vac and that dressing changes as well as the other wet to dry/moist dressing changes are very basic and not very involved or extensive and quite easy to do, not any more complicated than basic wound care. ROBINSON called and spoke to Mimi at [facility] and they started review but have concerns with pt's d/c plan from their facility. ROBINSON updated on Wound RN update on not extensive wound care. Mimi also states that they will need clarification on length of IV-Abx needed as typically they prefer to not have patient's exceed a month at their swing bed facility if possible. ROBINSON and LORNAP Ronna met bedside with pt and very pleasant and supportive son Zhang and discussed above and both still in agreement that SNF needed at d/c and that pt does not plan to d/c home alone after rehab. Son states he has called Assisted Living Facilities and has gotten pt on a waitlist as well as plans to put a deposit down at an Assisted Living facility that currently has an opening. Son has also called [employer] agencies and is aware of the cost in case needed as a back up. Son Zhang has been very proactive and involved and has already contacted an estate attorney to help with assisting in their plan to sell one of the homes that pt owns and extermination inspector care insurance correctly set up for pt's LTC planning. Son and pt's ultimate plan is for pt to move in with son and he is fully willing to provide care for the pt, they just need more time for healing and strengthening for the patient. Son has already bought a hospital bed that fully adjusts to a chair as well with the specialty mattress. Pt and son would be very agreeable to [facility] bed for a couple to few weeks for care and strengthening and then son plans to get pt settled for extermination inspector care at d/c from SNF/swing facility. SW spoke to MD who states he just consulted with ID MD and since pt does not have infection to bone and only in wound then only needs 5 day course of the Ertapenum Q24 and last dose will be this Sunday02/24/22. SW faxed these updated clinicals to Mimi at [facility] towards ideally accepting pt for a couple weeks before discharging with son for extermination inspector care setting which son is helping to set up and pt agreeable. Plan: SW to follow closely for [facility] bed review towards determining if they can accept pt at d/c for ongoing care prior to d/c with son support. ERIKA Cary
[2022-02-22] MEDS: SODIUM CHLORIDE 0.9% 250 ML 21 ML IV (15:45)
[2022-02-22] MEDS: ERTAPENEM 1 GM in SODIUM CHLORIDE 0.9% 100 ML IV (15:45)
[2022-02-22 20:00] VITALS: BP 110/47; PULSE 84; RESP 18; TEMP 37; O2SAT 95
[2022-02-22] MEDS: ACETAMINOPHEN 325 MG TABLET 650 MG PO (22:09)
--- NOTE | 2022-02-22 22:14 | PC.NURSE ---
Patient is alert and oriented. Breath sounds CTA with RA sat of 95%. HRR. Denies nausea. BT present but denies flatus and has not had a BM since 02/17; will need to check w/MD re: other bowel meds. Indwelling catheter is patent. Is being repositioned q1h using Judit tilt function as patient is unable to lie on her right side. Wound vac to sacrum/right buttock is intact at 125mmHg. Wet to dry dressings changed to lateral right leg and bilateral feet; less serosanguinous drainage noted tonight. Wearing foam heel protectors and has feet floated on pillows. Complains of pain in left knee so medicated with tylenol. Remains on contact isolation for ESBL in buttock wound. Fall risk score is high and bed alarm is activated.
[2022-02-22] MEDS: TRAMADOL 50 MG TABLET PO (23:10)
[2022-02-23] MEDS: PANTOPRAZOLE DR 20 MG TABLET PO (05:45)
[2022-02-23] MEDS: LEVOTHYROXINE 112 MCG TABLET PO (05:45)
--- NOTE | 2022-02-23 07:54 | P.PN_ITS ---
Subjective Subjective Date Patient Seen: 02/23/22 Time Patient Seen: 07:55 Interval history: No acute events overnight. Pending SNF placement. Exam Vital Signs (past 8 hours): Oxygen Delivery Method Room Air Oxygen Flow Rate 0 Narrative Exam Narrative: GEN: Alert and oriented x 3, NAD HEENT:NC, Face symmetric CHEST: Respiratory excursions symmetric, CTAB CV: RRR, no M/R/G ABD: Soft, NT/ND, BT present in all 4 quadrants, no organomegaly or masses EXTR: warm, well perfused, no C/C/E SKIN: warm and dry, no rash; right buttock ulcer with wound vac in placed, heels wrapped and have pressure boots in place NEURO: Alert and oriented x 3, nonfocal Objective Labs Result Diagrams: 02/19/22 06:30 02/19/22 06:30 [facility] Medical History Diabetes Hypertension Hypothyroid Social History household members: family and none Smoking Status: Former smoker Assessment & Plan Assessment & Plan narrative: 1. Primary lateral sclerosis Patient has had progressive difficulties with mobility.? She has been wheelchair bound.? Recently, her on hospice.? Son lives in [place].? She will likely require placement at discharge.? PT evaluation done today with recommendation for rehab. OT agrees with SNF. 2. Necrotic decubitus ulcers, POD #1 from surgical debridement Pt was taken to the OR yesterday by gen surgery and debridement of RLE/feet/buttock decubitus ulcers was accomplished. Continue local wound care with wound vac. Wound cultures growing ESBL so Zosyn changed to ertapenem IV. Will finish 5 day course to be safe. 3. Diabetes mellitus type 2 Remains on metformin.? Continue controlled carb diet. 4. Hypertension Continue lisinopril.? Blood pressure mildly hypotensive. Will add holding parameters. 5. Hyperlipidemia Continue statin therapy.? 6. Normocytic anemia Iron studies were performed and consistent with anemia of chronic inflammatory disease. Hemoglobin is down from 9 0.3-8.0 today. Likely she has had some acute blood loss secondary to the surgical debridements performed yesterday in the setting of her chronic normocytic anemia of inflammatory disease 7. Azotemia BUN was 31 on admission, it was improved yesterday down to 23.? Today it has normalized. Code status DNR Prophylaxis Lovenox Disposition Pending SNF Time Spent With Patient Critical Care time: I spent a total of [] minutes of critical care time on this patient's care today; this time is exclusive of procedural time. Quality VTE Deep Vein Thrombosis/Pulmonary Embolism Present on Admission: No
[2022-02-23 08:45] VITALS: BP 97/48; PULSE 70; RESP 18; TEMP 36.3; O2SAT 95
[2022-02-23] MEDS: ATORVASTATIN 20 MG TABLET 10 MG PO (08:54)
[2022-02-23] MEDS: METFORMIN HCL 500 MG TABLET PO (08:54)
[2022-02-23] MEDS: DOCUSATE 100 MG CAPSULE PO ×2 (08:54→21:17)
[2022-02-23] MEDS: lisinopriL 20 MG TABLET 40 MG PO (08:54)
[2022-02-23] MEDS: SODIUM CHLORIDE 0.9% FLUSH 10 ML IV ×3 (08:55→21:17)
[2022-02-23] MEDS: ENOXAPARIN 40 MG/0.4 ML SYRINGE SUBCUT (08:55)
--- NOTE | 2022-02-23 09:35 | PC.RNWOUND ---
Patient resting in bed, rates pain 0/10, lowers head of bed and at about a 60 degree angle patient says, See- there it is! Every time I go past this one spot my back hurts and then [as head of bed continues to lower flat] it goes away again. Once patient lying flat, pain is at 0/10. Wound cares performed to Right lower extremity and bilateral feet with wet to dry dressing changes as ordered. Wounds appear clean, edges well-defined and intact, no malodor, small amount of non-malodorous drainage to removed dressings. Patient tolerates cares well. Wound vac to right buttock appears intact and to be functioning correctly. Patient is repositioned with pillow, left-sided weight shift, heels floated on pillow with foam heel-offloading boots on bilaterally, patient reports comfort, says, I'm gonna miss all you guys when it's time for me to go. You all do such a great job. Bed in low, call barajas in easy reach, side rails up on both sides per patient request.
--- NOTE | 2022-02-23 10:04 | CM.MNRNOTE ---
Day shift: Wet to dry dressing change today at approx 0930 done by BITA Fung.
--- NOTE | 2022-02-23 11:37 | PT-IP ANOTE ---
Attempted to see pt at 11:37, pt fatigued at this time and anticipating visit w/ son, but agreeable to PT checking back this PM.
--- NOTE | 2022-02-23 11:42 | OT.IPNOTE ---
Pt requesting to be seen later as tired and just wanting to rest. To check back with pt later.
--- NOTE | 2022-02-23 12:29 | CM.DPNOTE ---
DCP Note [facility] accepts patient for admission tomorrow. Faxed [facility] per request Updated Dr Shahid. Will discuss plan w/patient this afternoon, in preparation for discharge tomorrow. DANDY
--- NOTE | 2022-02-23 12:45 | PT.IPTN ---
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 (02/17/22) Surgery Performed Operation Date: 02/18/22 12:30 Actual Procedures p Incision and Drainage Wound/General decubitus ulcers posterior right gluteus, right posterior mid thigh, bilateral foot bottom(Right) - Jorge Luis Flores MD Physical Therapy Treatment Note M2 PT-IP Current Condition Start: 02/19/22 08:36 Freq: NEEDED Status: Active Protocol: Document 02/23/22 12:25 SP (Rec: 02/23/22 13:27 SP [id number]) Physical Therapy Current Condition Current Condition Evaluation Date 02/19/22 Treatment Diagnosis stage 4 sacral PI; BLE wounds; primary lateral sclerosis; impaired mobility Onset Date 02/04/22 M3 PT-IP Subjective Start: 02/19/22 08:36 Freq: NEEDED Status: Active Protocol: Document 02/23/22 12:25 SP (Rec: 02/23/22 13:27 SP [id number]) Subjective Physical Therapy Visit Type Type Treatment Note Visit Start Time 12:25 Visit Stop Time 12:45 Total Visit Minutes 20 Notes Son present, Number of SHOE STICKS REPAIRER Visits 3 Physical Therapy Visit Comments Patient Comments Pt declined bed mobility but willing to work with therapy LE exercises to support mobility. Therapy Pain Assessment Pain Present Pain Present Denied Pain M4 PT-IP Mobility and Gait Start: 02/19/22 08:36 Freq: NEEDED Status: Active Protocol: Document 02/23/22 12:25 SP (Rec: 02/23/22 13:27 SP [id number]) PT-Transfer Assessment Comments Mobility Comments Pt elevated supine in bed pleasant, only agreeable to bed exercises can do for mobility. SHOE STICKS REPAIRER instructed LE: core/GS/QS engagement 5 sec x10 reps each, hip ER/ IR, heel slide, hip abd, ankle pumps. Education for self support for AP placed strap on R foot. Pt continued to have call light and all needs in reach before left. Gait Assessment Comments Gait Comments Unable at this time. Stair Climbing Assessment Comments Stair Climbing Comments No stairs at home. M5 PT-IP Objective Assessments Start: 02/19/22 08:36 Freq: NEEDED Status: Active Protocol: Document 02/19/22 11:25 AW (Rec: 02/19/22 12:10 AW [id number]) Orientation Orientation/Cognition Level of Alertness Alert Orientation Name,Day of Week,Place, Situation Language Function Ability No Deficits Noted Safety Awareness Understands Safety Issues Memory Description No Deficits Noted Gross Range of Motion Upper Extremity ROM Assessment Right Impaired Impairments RUE lacks elevation. Pt compensates with shoulder shrug but is unable to get her arm behind her head/body. Lower Extremity ROM Assessment Bilaterally Impaired Impairments Lacking dorsiflexion bilaterally with right more severely affected. Strength Lower Extremity Strength Assessment Bilaterally Impaired Hip L 3-/5; R 2-/5 Knee L 3+/5; R 2-/5 Ankle L 3+/5; R 2-/5 Sensation Assessment Sensation Gross Sensation Right LE Impaired Light Touch Impaired Proprioception (Position) Impaired Comments Sensation Comments Dull light touch sensation RLE Muscle Tone Muscle Tone Location Right Lower Extremity Type of Tone Hypotonicity Severity of Tone Severe M6 PT-IP Treatment Start: 02/19/22 08:36 Freq: NEEDED Status: Active Protocol: Document 02/23/22 12:25 SP (Rec: 02/23/22 13:27 SP [id number]) Physical Therapy Treatment Exercises Exercises Ankle Pumps,Gluteal Sets,Quad Sets,Heel Slides,Supine Hip Abduction Other Treatments Other Treatment Performed Education importance for taking every opportunity for functional mobility in bed. Instructed Le ex. Noted trace to poor- R quad contraction, hip hikes to initiate heel slide and hip abd on R therapist max A through AAROM. R hip ER max A, AAROM IR mod A with poor grade self muscle engagement. M7 PT-IP Assessment and Plan Start: 02/19/22 08:36 Freq: NEEDED Status: Active Protocol: Document 02/23/22 12:25 SP (Rec: 02/23/22 13:27 SP [id number]) PT Summary Assessment and Plan Potential Rehabilitation Potential Fair Summary Impairments Pain,ROM,Strength,Balance, Sensation,Tone,Bed Mobility, Transfers,Gait,Activity Tolerance Progress Towards Goals Slow Progress due to Medical Issues,Slow Progress due to Activity Tolerance,Slow Progress - Other Assessment Summary Pt declined bed mobiltiy. Instructed BLE exercises, improved R quad, hip IR and R ankle DF AAROM Max A, trace to Poor -. Pt will require SNf for increase strength for functional mobility. Pt and son currently aware pt unsafe to return home and are working on petroleum terminal plant operator plan. Pt has been using w/c for years and for months has not been able to transfer herself to toilet and now has wounds. WIll continue to assess progress in m obility. Goals Bed Mobility Goal Minimal Assistance Transfer Goal Moderate Assistance,Front Wheeled Walker Gait Goal Moderate Assistance,Front Wheel Walker Gait Distance 10 Days to Meet Goals 10 Frequency of Treatment Frequency Of Treatment Once a Day Treatment Plan Physical Therapy Treatment Plan Bed Mobility Training,Transfer Training,Gait Training, Therapeutic Exercise,Balance Retraining,Post Op Education, Discharge Planning,Hot or Cold Pack,Neuromuscular Re-ed Other Recommendations and Next Treatment bed mobility; ther ex for LE Focus strength; pressure relief, UE strengthening to assist w/ LE self assist and transfers and pressure relief of bottom. Precautions Other Precautions sacral and BLE stage IV pressure injuries - avoid excessive shear Recommendations To Nursing Amount of Assist Needed Mechanical Lift Discharge Recommendations PT Discharge Recommendations SNF Rehab,LTAC Transportation Needs at Discharge Wheelchair/Cabulance,Stretcher /Ambulance
--- NOTE | 2022-02-23 13:17 | OT.IP.TRT ---
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 Diagnosis Onset Date 02/17/22 M3 OT- IP Subjective and Pain Start: 02/20/22 13:20 Freq: Status: Active Protocol: Document 02/23/22 13:18 [facility] (Rec: 02/23/22 13:22 [facility] [id number]) OT- Subjective Occupational Therapy Visit Type Type Treatment Note Visit Start Time 13:05 Visit Stop Time 13:17 Total Visit Minutes 12 Occupational Therapy Visit Comments Patient Comments Pt initially not wanting to do OT and then agreed to do some gentle stretching and AAROM for RUE. Patient/Caregiver Goals Pt agreeing to go to SNF. OT Pain Assessment Pain When Pain Assessed At Rest Pain Present Pain Present Denied Pain M4 OT- IP ADL's Start: 02/20/22 13:20 Freq: Status: Active Protocol: Document 02/21/22 11:00 [facility] (Rec: 02/21/22 12:51 [facility] [id number]) OT [id number] Comments OT Self-Feeding Comments Not at meal time. OT ADL-Grooming General Evaluation Grooming Ability Standby Assistance Areas Needing Assistance Retrieving/Set-up of Grooming Items Comments OT Grooming Comments Pt able to do after seat up and getting pt to the edge fo the bed. OT ADL-Oral Care General Eval Oral Care Ability Standby Assistance Areas of Assistance Retrieving/Set-Up of Items OT ADL-Dressing General Eval Lower Body Dressing Ability Total Assistance Areas Needing Assistance Socks Comments OT Dressing Comments Pt total assist for all LB dressing needs. Pt having difficulty to move her RLE at this time. OT ADL-Toileting General Evaluation Toileting Ability Total Assistance Comments OT Toileting Comments Pt with lee. OT ADL-Bathing Comments OT Bathing Comments Sponge bath more appropriate at this time. M5 OT- IP IADL's Start: 02/20/22 13:20 Freq: Status: Active Protocol: Document 02/20/22 13:20 CGR (Rec: 02/20/22 13:37 CGR [id number]) OT-Instrumental Activities of Daily Living Deficits IADL Deficits Identified No Deficits Home Safety Awareness Awareness of Need for Assistance at Home Good Awareness Ability to Problem Solve Emergency Able to Problem Solve Situations Medication Management Medication Management No Deficits Identified Money Management Money Management No Deficits Identified Meal Preparation Meal Preparation Comments concerns regarding pt's ability to perform Crusher Supervisor Crusher Supervisor Comments concerns regarding pt's ability to perform Driving Driving Comments pt does not drive. M6 OT- IP Functional Cognition Start: 02/20/22 13:20 Freq: Status: Active Protocol: Document 02/21/22 11:00 [facility] (Rec: 02/21/22 12:51 [facility] [id number]) Cognitive Factors Limiting Selfcare Function Cognitive Ability Level of Alertness Alert Patient Orientation Name,Age,Birthday,Month,Date, Year,Day of Week,Place, Situation Attention Span Ability Capable of Focused Attention, Capable of Sustained Attention Cognitive Comments Cognitive Assessment Comments Pt is very pleasant and cooperative and able to follow commands well. M8 OT- IP Objective Assessments Start: 02/20/22 13:20 Freq: Status: Active Protocol: Document 02/23/22 13:18 [facility] (Rec: 02/23/22 13:22 [facility] [id number]) OT Strength Comments Strength Comments Able to do gentle stretching to pt's right internal rotators and AAROM for ROM above 90 degrees. Able to go over the importance of core strengthening and posture with the pt. M9 OT- IP Assessment and Plan Start: 02/20/22 13:20 Freq: Status: Active Protocol: Document 02/23/22 13:18 [facility] (Rec: 02/23/22 13:22 [facility] [id number]) OT Summary Assessment and Plan Potential Rehabilitation Potential Fair Analytic Complexity at Evaluation High Summary OT Impairments Pain,Range of Motion,Strength, Balance,Functional Mobility, Grooming,Dressing,Toileting, Bathing,Toilet Transfers, Shower Transfers,Activity Tolerance Progress Towards Goals Slow Progress due to Medical Issues,Slow Progress due to Activity Tolerance Assessment Summary Pt agreed to go over gentle stretching and AAROM for RUE. Pt looking to go to skilled rehab tomorrow. Goals Grooming Goal Independent OT-Other Goals Pt do be independent for BUE exercises in the bed. Days to Meet Goals 5 Frequency of Treatment Frequency Of Treatment Once a Day Treatment Plan OT Treatment Plan ADL Training,Functional Mobility,Patient/Family Education,Discharge Planning Discharge Recommendations OT Discharge Recommendations SNF Rehab,LTAC Transportation Needs at Discharge Stretcher/Ambulance
--- NOTE | 2022-02-23 13:22 | PC.RNWOUND ---
Patient resting in bed with son at bedside, denies pain at this time. Patient verbalizes awareness that if patient leaves to another facility tomorrow, wound vac will be removed and a saline wet to dry dressing will be placed to Right Buttock wound for transport.
[2022-02-23] MEDS: ERTAPENEM 1 GM in SODIUM CHLORIDE 0.9% 100 ML IV (15:26)
[2022-02-23 20:10] VITALS: BP 119/52; PULSE 81; RESP 18; TEMP 36.6; O2SAT 96
[2022-02-24] MEDS: LEVOTHYROXINE 112 MCG TABLET PO (05:34)
[2022-02-24] MEDS: PANTOPRAZOLE DR 20 MG TABLET PO (05:34)
--- NOTE | 2022-02-24 07:33 | PM.DS.1 ---
History of Present Illness History of Present Illness Date Patient Seen: 02/24/22 Time Patient Seen: 07:34 Chief complaint: Pressure Sore on Buttocks Narrative: This is a 81-year-old female with a history of primary lateral sclerosis who presents to the emergency department for evaluation of wounds and progressive decline in mobility who was discovered to have necrotic ulcers on her bilateral buttocks legs and heels.? Due to the extent and significance of the wounds it was felt she needed hospitalization with expected probable surgical debridement and aggressive treatment of these wounds.? Wound cultures and blood cultures were done in the emergency room.? The case was discussed with General surgery. The patient is followed by Dr. Corine Raygoza at [facility] and stand would.? The patient lives on [facility] She is excellent historian and her son Zhang is here visiting from [place].? She has had a progressive decline over the last several months but for 6 weeks she is essentially been immobile and no longer able to walk with her walker.? She is had severe pain over the last 2 weeks because of the wounds and has been continually on them.? Apparently she sought care at [facility] Emergency room and for some reason they did not admit her to the hospital but discharge her to home with home health.? Home health has been coming into the house twice weekly.? Patient was seen at [facility] on January 25. Discharge Providers Provider Date of admission: 02/17/22 20:27 Discharge Date: 02/24/22 Consults: 02/17/22 18:05 [place] [facility] President Of Product Marketing Stat Comment: Consult to Physical Therapy Evaluate & Treat Comment: Physician Instructions: Evaluate and Treat 02/17/22 20:46 Consult to General Surgery Routine Comment: Consulting Provider: Jorge Luis Flores Reason for consultation: Necrotic ulcers Has provider been notified: Yes 02/17/22 23:21 Consult to Discharge Planning Routine Comment: Consult to Occupational Therapy Evaluate & Treat Comment: Physician Instructions: Evaluate and treat Consult to Physical Therapy Evaluate & Treat Comment: Physician Instructions: Evaluate and Treat Consult to Physician Routine Comment: Consulting Provider: Jorge Luis Flores Reason for consultation: decubitus ulcer Has provider been notified: Yes 02/18/22 20:53 Consult to Dietitian, Adult Routine Comment: Reason For Exam: MNA score = 14; has multiple decubiti 02/19/22 15:44 Consult to Occupational Therapy Evaluate & Treat Comment: Physician Instructions: Evaluate and treat 02/20/22 02:25 Consult to Inpatient Wound Care Nurse Routine Comment: Reason for consultation: Multiple pressure injuries to coccys, both heels, legs Has provider been notified: Yes 02/21/22 07:20 Consult to Pastoral Services Routine Comment: pt requested as passed 2 weeks ago Discharge provider: Geovany Shahid DO Summary Hospital Course Discharge Diagnosis: 1. Primary lateral sclerosis Patient has had progressive difficulties with mobility.? She has been wheelchair bound.? Recently, her on hospice.? Son lives in [place].? She will likely require placement at discharge.? PT evaluation done today with recommendation for rehab.? OT agrees with SNF. 2. Necrotic decubitus ulcers s/p surgical debridement Pt was taken to the OR by gen surgery and debridement of RLE/feet/buttock decubitus ulcers was accomplished.? Continue local wound care with wound vac. Wound cultures growing ESBL so Zosyn changed to ertapenem IV. Although no signs of surrounding cellulitis or osteomyelitis. Will finish 5 day course to be safe. 3. Diabetes mellitus type 2 Remains on metformin.? Continue controlled carb diet. 4. Hypertension Continue lisinopril at half home dose of 20mg due to low BP. 5. Hyperlipidemia Continue statin therapy.? 6. Normocytic anemia Iron studies were performed and consistent with anemia of chronic inflammatory disease.? Hemoglobin is down from 9 0.3-8.0 today.? Likely she has had some acute blood loss secondary to the surgical debridements performed yesterday in the setting of her chronic normocytic anemia of inflammatory disease 7. Azotemia BUN was 31 on admission, it was improved yesterday down to 23.? Today it has normalized. Hospital Course: 81-year-old Female with primary lateral sclerosis, type 2 diabetes, hyperlipidemia hypertension, and hypothyroidism who admitted with progressive necrotic decubitus wounds on buttocks and LE's as well as worsening mobility issues after the of her on hospice. Also multiple LE wounds. Taken to OR where wounds were debrided by general surgery. No evidence of cellulitis or osteomyelitis. Wound VAC in place and will require ongoing dressing changes. Completed 5 day course of ertapenem given ESBL grew in wound. Patient was deemed candidate for SNF by physical therapy so discharged to [place]. Will need strict turning schedule for offloading of pressure on backside. Time Spent with Patient Time spent: Greater than 30 minutes Exam Vital Signs (past 8 hours): Oxygen Delivery Method Room Air Oxygen Flow Rate 0 Narrative Exam Narrative: GEN: Alert and oriented x 3, NAD HEENT:NC, Face symmetric CHEST: Respiratory excursions symmetric, CTAB CV: RRR, no M/R/G ABD: Soft, NT/ND, BT present in all 4 quadrants, no organomegaly or masses EXTR: warm, well perfused, no C/C/E SKIN: warm and dry, no rash; right buttock ulcer with wound vac in placed, heels wrapped and have pressure boots in place NEURO: Alert and oriented x 3, nonfocal Objective Labs Result Diagrams: 02/19/22 06:30 02/19/22 06:30 [facility] Medical History Diabetes Hypertension Hypothyroid Social History household members: family and none Smoking Status: Former smoker Discharge Plan Discharge Plan Patient Disposition: SNF Transfer to: [facility] Discharge orders & Medications Prescriptions: Continued metformin 500 mg tablet 500 mg PO DAILY lovastatin 40 mg tablet 40 mg PO DAILY aspirin 81 mg Tablet,Chewable 81 mg PO DAILY lisinopril 40 mg tablet 40 mg PO DAILY levothyroxine 112 mcg tablet 112 mcg PO DAILY Follow up/Referrals: Miscellaneous,[facility] [Non-Staff] - 1 Week (needs new PCP) [facility] Deep Vein Thrombosis/Pulmonary Embolism Present on Admission: No
[2022-02-24 07:40] VITALS: BP 103/42; PULSE 78; RESP 18; TEMP 37; O2SAT 94
--- NOTE | 2022-02-24 08:45 | CM.DPNOTE ---
Called [facility] BLS and spoke to Brett for 1300 pickup today. Let him know contact tommy & jesus. Relayed to Neeta. Ricarda Mckeon CM Assist.
[2022-02-24] MEDS: ERTAPENEM 1 GM in SODIUM CHLORIDE 0.9% 100 ML IV (08:47)
[2022-02-24] MEDS: ENOXAPARIN 40 MG/0.4 ML SYRINGE SUBCUT (08:49)
[2022-02-24 08:58] VITALS: BP 103/42; PULSE 94
[2022-02-24] MEDS: METFORMIN HCL 500 MG TABLET PO (08:59)
[2022-02-24] MEDS: ATORVASTATIN 20 MG TABLET 10 MG PO (08:59)
[2022-02-24] MEDS: DOCUSATE 100 MG CAPSULE PO (09:00)
[2022-02-24] MEDS: SODIUM CHLORIDE 0.9% FLUSH 10 ML IV (09:04)
[2022-02-24 09:58] LABS: COVID19 -Nasal RAPID Negative (Negative)
--- NOTE | 2022-02-24 10:11 | PT-IP ANOTE ---
Attempted to see pt at 10:11 AM, pt refused PT requesting to rest prior to transfer to SNF.
--- NOTE | 2022-02-24 11:38 | OT.IPNOTE ---
Pt requesting to rest versus be seen for OT at this time as going to SNF today, no charge.
--- NOTE | 2022-02-24 12:27 | CM.DPNOTE ---
Addendum entered by ERIKA Deutsch 02/24/22 12:34: ADD: All DC ppk faxed by Ricarda COLLADO to [facility] DANDY Original Note: DC Note DC to [facility] today, BLS arranged for p/u at 1300. Spoke w/ Nargis at [facility], on [facility], and updated on transport time. This PRINTING SUPERVISOR connected Nargis w/SADIE Dougherty to discuss wound care and wound vac needs COVID PCR updated= Neg Plan confirmed w/patient and she remains agreeable; patient states appreciation to all staff caring for her and coordinating this plan. Son to meet patient at the SNF upon her arrival Plan: [facility] DANDY
[2022-02-24] MEDS: TRAMADOL 50 MG TABLET PO (13:12)
--- NOTE | 2022-02-24 14:16 | PC.NURSE ---
DayShift Pt left via medical transport BLS, to SNF. Pt was given 50mg tramadol for transport pain, Pt had a liquid BM, right leg thigh dressing had to be redone due to BM. Wound Vac seal was cleaned and reapplied to ensure seal for transport. Pt denied pain. All paperwork in SNF packet for transport given to transport staff. Pt had all personal belongings. leaving via BLS at approximately 1415.
== END 2022-02-24 15:36 | DRG 571 ==
LOC: ED 20:24 → AC 22:06
PROVIDERS: Family Medicine; Surgery; Admitting Provider Family Medicine; Emergency Provider Emergency Medicine; Referring Provider Emergency Medicine; Visit Provider Student in an Organized Health Care Education/Training Program
PROC: 0JBM0ZZ Excision of Left Upper Leg Subcutaneous Tissue and Fascia, Open Approach (ICD-10-PCS; principal; 2022-02-18 12:30)
DX: L89.313 Pressure ulcer of right buttock, stage 3 (principal); G12.23 Primary lateral sclerosis; L89.320 Pressure ulcer of left buttock, unstageable; L89.624 Pressure ulcer of left heel, stage 4; L89.893 Pressure ulcer of other site, stage 3; I10 Essential (primary) hypertension; E78.5 Hyperlipidemia, unspecified; E03.9 Hypothyroidism, unspecified; E11.9 Type 2 diabetes mellitus without complications; R79.89 Other specified abnormal findings of blood chemistry; Z87.891 Personal history of nicotine dependence; Z79.84 Long term (current) use of oral hypoglycemic drugs; Z20.822 Contact with and (suspected) exposure to COVID-19; Z66 Do not resuscitate
CPT/HCPCS: 36415; 80048; 80053; 81001; 82550; 82607; 82962; 83540; 83550; 83880; 84439; 84443; 84484; 85025; 87040; 87070; 87075; 87077; 87086; 87147; 87186; 87205; 87635; 93005; 97110; 97163; 97167; 97530; 97535; 99284; C9803; J1100; J1170; J1335; J1642; J1650; J1815; J2185; J2405; J2543; J2704; J3010